=== PATIENT | female | born 1985 | race Caucasian/White ===

== ENCOUNTER 2020-11-07 17:07 | Outpatient (CLI) | payer OTHER | END 2020-11-07 17:08 | disposition home or self-care (01) | LOC: COV 17:07 | PROVIDERS: ATTEND Family Medicine | DX: R05 Cough (principal); R06.02 Shortness of breath; M79.10 Myalgia, unspecified site; R53.83 Other fatigue; R07.0 Pain in throat; R09.81 Nasal congestion; J34.89 Other specified disorders of nose and nasal sinuses; Z20.828 Contact with and (suspected) exposure to other viral communicable diseases ==

== ENCOUNTER 2020-12-08 12:08 | Emergency (ER) | payer OTHER ==
--- NOTE | 2020-12-08 13:12 | ED Physician Documentation ---
History of Present Illness - Stated complaint Stated Complaint: NAUSEA,HEADACHE - Chief complaint Chief Complaint: Abd Pain - History obtained from History obtained from: Patient - Additonal information Additional information: 35-year-old female presents the emergency department for evaluation of nausea vaginal bleeding and lower abdominal pain. She has been attempting to get . LMP 11/14/2020. She began having vaginal spotting 1. The spotting ended yesterday. However she is also been having cramping. She is unsure if the vaginal spotting and bleeding with her menses or if she could be . She has not taken a test. At this time in the emergency department she has no abdominal pain or fevers. She denies any urinary symptoms urgency or frequency. Past medical history includes asthma depression and ADD. 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 Meds albuterol, Adderall 10 mg daily, Lexapro 10 mg daily Review of Systems Constitutional: reports: Reviewed and negative Ears: reports: Reviewed and negative Nose: reports: Reviewed and negative Throat: reports: Reviewed and negative Cardiac: reports: Reviewed and negative Respiratory: reports: Reviewed and negative GI: reports: Abdominal Pain, Nausea, Vomiting : denies: Dysuria, Frequency, Hesitancy Skin: reports: Reviewed and negative Musculoskeletal: reports: Reviewed and negative Neurologic: reports: Reviewed and negative PD PAST MEDICAL HISTORY - Past Medical History Respiratory: Asthma - Present Medications Home Medications: Ambulatory Orders Medication Instructions Recorded Confirmed Meclizine HCl [Antivert] 25 mg PO QID PRN #20 tablet 02/08/16 12/08/20 Albuterol [Proventil Hfa] 1 - 2 puffs PO PRN PRN 12/08/20 12/08/20 Dextroamphetamine/Amphetamine 10 mg PO DAILY 12/08/20 12/08/20 [Adderall 10 mg Tablet] Escitalopram [Lexapro] 10 mg PO DAILY 12/08/20 12/08/20 - Allergies Allergies/Adverse Reactions: Allergies Allergy/AdvReac Type Severity Reaction Status Date / Time acetaminophen [From Vicodin] Allergy Nausea Verified 12/08/20 12:15 hydrocodone bitartrate * Allergy Nausea Verified 12/08/20 12:15 [From Vicodin] - Social History Does the pt smoke?: No Smoking Status: Never smoker Does the pt drink ETOH?: No Does the pt have substance abuse?: No PD ED PE EXPANDED - General General: Alert, No acute distress - Neck Neck: Supple w/out meningeal sx, No tenderness - Abdomen Abdomen: Normal Bowel sounds. No: Tender to palpation - Extremities Extremities: Normal. No: Deformity, Tenderness - Neuro Neuro: Alert and Oriented X 3, CNII-XII intact - GCS Eye Opening: Spontaneous Motor: Obeys Commands Verbal: Oriented Total: 15 Results - Vitals Vitals: Vital Signs - 24 hr 12/08/20 12/08/20 12:15 13:56 Temperature 36.5 C Heart Rate 80 76 Respiratory 16 18 Rate Blood Pressure 101/65 98/62 O2 Saturation 99 99 Oxygen O2 Source Room air - Labs Labs: Laboratory Tests 12/08/20 12/08/20 12/08/20 12:24 12:24 13:22 WBC 8.5 RBC 3.60 L Hgb 12.5 Hct 37.1 MCV 103.1 H MCH 34.7 H MCHC 33.7 RDW 11.2 L Plt Count 216 MPV 9.9 Neut # (Auto) 6.9 H Lymph # (Auto) 1.1 L Boyle # (Auto) 0.4 Eos # (Auto) 0.0 Baso # (Auto) 0.0 Absolute Nucleated RBC 0.00 Nucleated RBC % 0.0 Sodium Potassium Chloride Carbon Dioxide Anion Gap BUN Creatinine Estimated GFR (MDRD) Glucose Calcium Total Bilirubin AST ALT Alkaline Phosphatase Total Protein Albumin Globulin Albumin/Globulin Ratio Lipase HCG, Quant Urine Color YELLOW Urine Clarity CLEAR Urine pH >=9.0 H Ur Specific Makinen 1.015 Urine Protein NEGATIVE Urine Glucose (UA) NEGATIVE Urine Ketones TRACE Urine Occult Blood NEGATIVE Urine Nitrite NEGATIVE Urine Bilirubin NEGATIVE Urine Urobilinogen 0.2 (NORMAL) Ur Leukocyte Esterase NEGATIVE Ur Microscopic Review NOT INDICATED Urine Culture Comments NOT INDICATED Urine HCG, Qual NEGATIVE 12/08/20 12/08/20 13:22 13:22 WBC RBC Hgb Hct MCV MCH MCHC RDW Plt Count MPV Neut # (Auto) Lymph # (Auto) Boyle # (Auto) Eos # (Auto) Baso # (Auto) Absolute Nucleated RBC Nucleated RBC % Sodium 140 Potassium 3.4 L Chloride 98 L Carbon Dioxide 24 Anion Gap 18.0 H BUN 10 Creatinine 0.7 Estimated GFR (MDRD) 96 Glucose 107 H Calcium 9.3 Total Bilirubin 1.4 H AST 18 ALT 17 Alkaline Phosphatase 44 Total Protein 7.1 Albumin 4.2 Globulin 2.9 Albumin/Globulin Ratio 1.4 Lipase 25 HCG, Quant < 0.60 Urine Color Urine Clarity Urine pH Ur Specific Makinen Urine Protein Urine Glucose (UA) Urine Ketones Urine Occult Blood Urine Nitrite Urine Bilirubin Urine Urobilinogen Ur Leukocyte Esterase Ur Microscopic Review Urine Culture Comments Urine HCG, Qual PD MEDICAL DECISION MAKING - ED course Complexity details: reviewed results, re-evaluated patient, considered differential, d/w patient ED course: 35-year-old female was referred to the emergency department for evaluation of vaginal spotting/bleeding that had occurred for 5 days but stopped yesterday. She last had a menstrual cycle 11/14/2020. So the early bleeding concerned her that she may be . Urine hCG and serum hCG are both negative. Here in the emergency department her lab work is otherwise essentially unremarkable and no abdominal pain is elicited. This time she is discharged home with recommendation to monitor her cycles emergent return precautions discussed Departure - Departure Disposition: Home, Self Care Clinical Impression: Irregular menstrual bleeding Condition: Stable Record reviewed to determine appropriate education?: Yes Follow-Up: Susan Taylor MD [Primary Care Provider] - Comments: Angelia you were seen in the emergency department today because you had an early irregular menstrual cycle. Here in the emergency department both your blood hormone level and urine hormone levels show that you are not . It is unclear why you had the early cycle. I recommend that you schedule follow-up with your primary care doctor. If at any point you develop fevers, have suddenly severe lower belly pain, uncontrolled vomiting please return to the ER for a second look
[2020-12-08 13:26] LABS: BILIRUBIN,URINE NEGATIVE (NEGATIVE); GLUCOSE, URINE (UA) NEGATIVE (NEGATIVE); KETONES,URINE (UA) TRACE mg/dL (NEGATIVE); LEUKOCYTE ESTERASE, URINE NEGATIVE (NEGATIVE); NITRITE,URINE NEGATIVE (NEGATIVE); OCCULT BLOOD,URINE NEGATIVE (NEGATIVE); PH,URINE >=9.0 PH (5.0-7.5); PROTEIN,URINE NEGATIVE (NEGATIVE); UROBILINOGEN,URINE 0.2 (NORMAL) E.U./dL (NORMAL)
[2020-12-08 13:30] LABS: CLARITY,URINE CLEAR (CLEAR)
[2020-12-08 13:31] LABS: HCG UR QUAL NEGATIVE
[2020-12-08 13:46] LABS: BASOPHILS % (AUTO) 0.5 %; EOSINOPHILS % (AUTO) 0.2 %; HGB - HEMOGLOBIN 12.5 g/dL (12.0-16.0); LYMPHOCYTES # (AUTO) 1.1 10^3/uL (1.5-3.5); LYMPHOCYTES % (AUTO) 12.7 %; MEAN CORPUSCULAR HEMOGLOBIN 34.7 pg (27.0-31.0); MEAN CORPUSCULAR HGB CONC 33.7 g/dL (32.0-36.0); MEAN CORPUSCULAR VOLUME 103.1 fL (81.0-99.0); MEAN PLATELET VOLUME 9.9 fL (7.9-10.8); MONOCYTES # (AUTO) 0.4 10^3/uL (0.0-1.0); MONOCYTES % (AUTO) 4.7 %; NEUTROPHILS # (AUTO) 6.9 10^3/uL (1.5-6.6); NEUTROPHILS % (AUTO) 81.3 %; PLT - PLATELET COUNT 216 10^3/uL (130-450); RED CELL DISTRIBUTION WIDTH 11.2 % (12.0-15.0); WHITE BLOOD COUNT 8.5 x10^3/uL (4.8-10.8)
[2020-12-08 14:02] LABS: ALBUMIN 4.2 g/dL (3.2-5.5); ALBUMIN/GLOBULIN RATIO 1.4 (1.0-2.2); BILIRUBIN,TOTAL 1.4 mg/dL (0.2-1.0); CALCIUM 9.3 mg/dL (8.5-10.3); CREATININE 0.7 mg/dL (0.4-1.0); TOTAL PROTEIN 7.1 g/dL (6.7-8.2)
[2020-12-08 14:46] VITALS: BP 93/61
== END 2020-12-08 14:46 | disposition home or self-care (01) ==
LOC: ED 12:08
DX: N92.6 Irregular menstruation, unspecified (principal); Z32.02 Encounter for pregnancy test, result negative
CPT/HCPCS: 36415; 80053; 81001; 81003; 81025; 83690; 84702; 85025; 87086; 99282; 99283

== ENCOUNTER 2022-04-19 16:23 | Outpatient (CLI) | payer OTHER ==
[2022-04-19 20:21] LABS: BILIRUBIN,URINE NEGATIVE (NEGATIVE); GLUCOSE, URINE (UA) NEGATIVE (NEGATIVE); KETONES,URINE (UA) TRACE mg/dL (NEGATIVE); LEUKOCYTE ESTERASE, URINE NEGATIVE (NEGATIVE); NITRITE,URINE NEGATIVE (NEGATIVE); OCCULT BLOOD,URINE NEGATIVE (NEGATIVE); PH,URINE 7.5 PH (5.0-7.5); PROTEIN,URINE NEGATIVE (NEGATIVE); UROBILINOGEN,URINE 0.2 (NORMAL) E.U./dL (NORMAL)
[2022-04-19 20:46] LABS: BACTERIA,URINE None Seen /HPF (None Seen); CLARITY,URINE CLEAR (CLEAR); RBC,URINE None Seen /HPF (0-5); SQUAMOUS EPITHELIAL CELL,UR RARE Squamous (<= Few); WBC,URINE 0-3 /HPF (0-5)
[2022-04-21 07:09] LABS: COMPLEMENT C3 107 mg/dL (82-167); COMPLEMENT C4 18 mg/dL (12-38)
[2022-04-21 17:08] LABS: ANTI-DNA (DS) AB QN 1 IU/mL (0-9); CENTROMERE B ANTIBODIES <0.2 AI (0.0-0.9); CHROMATIN ANTIBODIES <0.2 AI (0.0-0.9); JO-1 AB <0.2 AI (0.0-0.9); RIBOSOMAL P ANTIBODIES <0.2 AI (0.0-0.9); RNP ANTIBODIES <0.2 AI (0.0-0.9); SCLERODERMA-70 ANTIBODIES <0.2 AI (0.0-0.9); SJOGREN'S ANTI-SS-A <0.2 AI (0.0-0.9); SJOGREN'S ANTI-SS-B <0.2 AI (0.0-0.9); SMITH ANTIBODIES <0.2 AI (0.0-0.9); SMITH/RNP ANTIBODIES <0.2 AI (0.0-0.9)
== END 2022-04-19 16:24 | disposition home or self-care (01) ==
LOC: LAB.S 16:23
PROVIDERS: ATTEND Physician Assistant
DX: R53.83 Other fatigue (principal); R21 Rash and other nonspecific skin eruption; R59.1 Generalized enlarged lymph nodes; R76.8 Other specified abnormal immunological findings in serum
CPT/HCPCS: 36415; 81001; 85651; 86160; 86225; 86235; 87086

== ENCOUNTER 2022-09-10 12:29 | Outpatient (CLI) | payer OTHER ==
[2022-09-10 12:50] LABS: BASOPHILS % (AUTO) 0.5 %; EOSINOPHILS # (AUTO) 0.1 10^3/uL (0.0-0.7); EOSINOPHILS % (AUTO) 0.7 %; HCT - HEMATOCRIT 36.7 % (37.0-47.0); HGB - HEMOGLOBIN 12.5 g/dL (12.0-16.0); LYMPHOCYTES # (AUTO) 2.3 10^3/uL (1.5-3.5); LYMPHOCYTES % (AUTO) 29.9 %; MEAN CORPUSCULAR HEMOGLOBIN 34.8 pg (27.0-31.0); MEAN CORPUSCULAR HGB CONC 34.1 g/dL (32.0-36.0); MEAN CORPUSCULAR VOLUME 102.2 fL (81.0-99.0); MEAN PLATELET VOLUME 9.2 fL (7.9-10.8); MONOCYTES # (AUTO) 0.6 10^3/uL (0.0-1.0); MONOCYTES % (AUTO) 7.4 %; NEUTROPHILS # (AUTO) 4.7 10^3/uL (1.5-6.6); NEUTROPHILS % (AUTO) 61.2 %; PLT - PLATELET COUNT 259 10^3/uL (130-450); RED BLOOD COUNT 3.59 10^6/uL (4.20-5.40); RED CELL DISTRIBUTION WIDTH 11.1 % (12.0-15.0); WHITE BLOOD COUNT 7.6 x10^3/uL (4.8-10.8)
[2022-09-10 13:08] LABS: BILIRUBIN,URINE NEGATIVE (NEGATIVE); GLUCOSE, URINE (UA) NEGATIVE (NEGATIVE); KETONES,URINE (UA) NEGATIVE (NEGATIVE); LEUKOCYTE ESTERASE, URINE NEGATIVE (NEGATIVE); NITRITE,URINE NEGATIVE (NEGATIVE); OCCULT BLOOD,URINE NEGATIVE (NEGATIVE); PROTEIN,URINE NEGATIVE (NEGATIVE); UROBILINOGEN,URINE 0.2 (NORMAL) E.U./dL (NORMAL)
[2022-09-10 13:10] LABS: CLARITY,URINE CLEAR (CLEAR)
[2022-09-10 13:23] LABS: BACTERIA,URINE Few /HPF (None Seen); RBC,URINE None Seen /HPF (0-5); SQUAMOUS EPITHELIAL CELL,UR FEW Squamous (<= Few); WBC,URINE 0-3 /HPF (0-5)
[2022-09-11 05:10] LABS: HCV AB <0.1 s/co ratio (0.0-0.9); HIV SCREEN 4TH GENERATION Non Reactive (Non Reactive)
[2022-09-11 07:09] LABS: HBsAG SCREEN Negative (Negative)
[2022-09-11 08:09] LABS: RPR Non Reactive (Non Reactive)
[2022-09-11 11:09] LABS: VARICELLA-ZOSTER AB IGG 643 index (Immune >165)
== END 2022-09-10 12:30 | disposition home or self-care (01) ==
LOC: LAB 12:29
PROVIDERS: ATTEND Nurse Practitioner
DX: Z36.89 Encounter for other specified antenatal screening (principal)
CPT/HCPCS: 36415; 81001; 85025; 86592; 86762; 86787; 86803; 86850; 86900; 86901; 87086; 87340; 87389; 87491; 87591; 87661

== ENCOUNTER 2022-09-11 08:00 | Outpatient (CLI) | payer OTHER ==
[2022-09-11 12:23] LABS: BILIRUBIN,URINE NEGATIVE (NEGATIVE); CLARITY,URINE CLEAR (CLEAR); GLUCOSE, URINE (UA) NEGATIVE (NEGATIVE); KETONES,URINE (UA) NEGATIVE (NEGATIVE); LEUKOCYTE ESTERASE, URINE TRACE (NEGATIVE); NITRITE,URINE NEGATIVE (NEGATIVE); OCCULT BLOOD,URINE NEGATIVE (NEGATIVE); PROTEIN,URINE NEGATIVE (NEGATIVE); UROBILINOGEN,URINE 0.2 (NORMAL) E.U./dL (NORMAL)
[2022-09-11 12:56] LABS: BACTERIA,URINE Few /HPF (None Seen); RBC,URINE 0-5 /HPF (0-5); SQUAMOUS EPITHELIAL CELL,UR FEW Squamous (<= Few); WBC,URINE 0-3 /HPF (0-5)
[2022-09-11 20:57] LABS: CHLAMYDIA TRACHOMATIS DNA NEGATIVE (NEGATIVE); NEISSERIA GONORRHOEAE DNA NEGATIVE (NEGATIVE); TRICHOMONAS VAGINALIS DNA NEGATIVE (NEGATIVE)
== END 2022-09-11 23:59 | disposition home or self-care (01) ==
LOC: LAB.WC 08:00
PROVIDERS: ATTEND Nurse Practitioner
DX: Z36.89 Encounter for other specified antenatal screening (principal)
CPT/HCPCS: 81001; 87086; 87491; 87591; 87661

== ENCOUNTER 2022-09-17 18:52 | Outpatient (CLI) | payer OTHER ==
--- NOTE | 2022-09-18 13:54 | Ultrasound Report ---
PROCEDURE: OB First Trimester w/TV INDICATIONS: SUPERVISION OF OUTSIDE/PRIOR DATING DATA: Last menstrual period (LMP): 07/22/2022. LMP-based estimated date of delivery (EDELMIRA): 04/28/2023. First dating scan (date and location): 09/17/2022. Estimated date of delivery (EDELMIRA) from first dating scan: 04/27/2023. The below data below was generated using the ultrasound derived EDELMIRA of 04/27/2023 TECHNIQUE: Real-time scanning was performed of the fetus and maternal pelvic organs, with image documentation. Endovaginal scanning was also performed to better visualize the fetus and maternal ovaries. COMPARISON: None. FINDINGS: Embryo: There is a gestational sac at the uterine fundus measuring 3.7 cm. Within the gestational sa c there is a fetus measuring 1.8 cm in crown-rump length. heart rate is 169 bpm. No significant adnexal or ovarian abnormality. No pathologic free fluid. IMPRESSION: Single living intrauterine gestation with estimated gestational age 8 weeks 2 days. Reviewed by: Shan Angulo MD on 09/18/2022 1:52 PM PDT Approved by: Shan Angulo MD on 09/18/2022 1:52 PM PDT Station ID: [id number]
== END 2022-09-17 18:53 | disposition home or self-care (01) ==
LOC: DI 18:52
PROVIDERS: ATTEND Nurse Practitioner
DX: Z34.91 Encounter for supervision of normal pregnancy, unspecified, first trimester (principal); Z36.89 Encounter for other specified antenatal screening

== ENCOUNTER 2022-11-05 11:14 | Outpatient (CLI) | payer OTHER | END 2022-11-05 11:15 | disposition home or self-care (01) | LOC: LAB 11:14 | PROVIDERS: ATTEND Obstetrics & Gynecology | DX: Z34.90 Encounter for supervision of normal pregnancy, unspecified, unspecified trimester (principal) | CPT/HCPCS: 36415 ==

== ENCOUNTER 2022-12-05 14:13 | Outpatient (CLI) | payer OTHER | END 2022-12-05 14:14 | disposition home or self-care (01) | LOC: LAB.S 14:13 | PROVIDERS: ATTEND Obstetrics & Gynecology | DX: Z34.90 Encounter for supervision of normal pregnancy, unspecified, unspecified trimester (principal) | CPT/HCPCS: 36415; 81511 ==

== ENCOUNTER 2022-12-10 09:01 | Outpatient (CLI) | payer OTHER ==
--- NOTE | 2022-12-10 11:57 | Ultrasound Report ---
PROCEDURE: OB Detailed Eval INDICATIONS: SUPERVISION OF OUTSIDE/PRIOR DATING DATA: Last menstrual period (LMP): 07/22/2022. LMP-based estimated date of delivery (EDELMIRA): 04/28/2023. First dating scan (date and location): 09/17/2022. Estimated date of delivery (EDELMIRA) from first dating scan: 04/27/2023. The below data below was generated using the ultrasound EDELMIRA of 04/27/2023 TECHNIQUE: Real-time scanning was performed of the fetus, with image documentation and biometric measurements. Endovaginal scanning: Not performed COMPARISON: Ultrasound 09/17/2022 FINDINGS: General: A single living intrauterine gestation is present. Presentation: Cephalic Placenta: Placental position is anterior, without previa. Amniotic fluid index: 14 cm, 40th percentile for gestational age. Single deepest vertical fluid pocket is 4.2 cm. heart rate: 140 beats per minute. Maternal cervical canal: 3.9 cm long; normal length is 2.5 cm or more. biometrics: Biparietal diameter: 4.87 cm, 20 weeks 5 days Head circumference: 15.67 cm, 21 weeks 0 days Abdominal circumference: 15.89 cm, 21 weeks 0 days Femur length: 3.4 cm, 20 weeks 5 days Estimated gestational age from initial scan: 20 weeks 1 day Composite gestational age from present scan: 20 weeks 5 days Estimated weight and percentile: 383 g, 84th percentile Measurement variability in biometric dating: +/- 10 days from 12-20 weeks gestation, +/- 2 weeks from 20-30 weeks gestation, +/- 3 weeks at 30 weeks gestation or later. Anatomic survey: Neuro: Ventricles are normal at less than 10 mm. Cisterna magna is normal at 3-11 mm. Cerebellum i s normal in size and morphology. Nuchal skin fold: Normal at less than 6 mm between 14 and 20 weeks gestational age. Face: Nose and lips, facial profile are normal. Spine: No evidence for spina bifida. Heart: 4-chambered heart is present, with normal ventricular outflow tracts. Diaphragm: Diaphragm is intact. Stomach: Left-sided stomach is present. Kidneys: No hydronephrosis. Normal is less than 5 mm in 2nd trimester, less than 7 mm in 3rd trimester. Cord: 3 vessel cord has orthotopic insertion. Bladder: Normal in size. Extremities: All 4 extremities are visualized. IMPRESSION: 1.Single live intrauterine with appropriate interval growth. 2. anatomic survey is within normal limits. 3.Nuchal cord is noted. Reviewed by: Stanley Campos MD on 12/10/2022 11:56 AM PST Approved by: Stanley Campos MD on 12/10/2022 11:56 AM PST Station ID: [id number]
== END 2022-12-10 09:02 | disposition home or self-care (01) ==
LOC: DI 09:01
PROVIDERS: ATTEND Nurse Practitioner
DX: Z34.92 Encounter for supervision of normal pregnancy, unspecified, second trimester (principal); Z3A.20 20 weeks gestation of pregnancy; Z36.89 Encounter for other specified antenatal screening

== ENCOUNTER 2023-02-06 07:56 | Outpatient (CLI) | payer OTHER ==
[2023-02-06 14:24] LABS: HCT - HEMATOCRIT 31.7 % (37.0-47.0); HGB - HEMOGLOBIN 10.2 g/dL (12.0-16.0); MEAN CORPUSCULAR HGB CONC 32.2 g/dL (32.0-36.0); MEAN CORPUSCULAR VOLUME 102.6 fL (81.0-99.0); MEAN PLATELET VOLUME 9.6 fL (7.9-10.8); RED BLOOD COUNT 3.09 10^6/uL (4.20-5.40); RED CELL DISTRIBUTION WIDTH 12.4 % (12.0-15.0); WHITE BLOOD COUNT 8.5 x10^3/uL (4.8-10.8)
== END 2023-02-06 07:57 | disposition home or self-care (01) ==
LOC: LAB.S 07:56
PROVIDERS: ATTEND Obstetrics & Gynecology
DX: Z36.89 Encounter for other specified antenatal screening (principal)
CPT/HCPCS: 36415; 82950; 85027

== ENCOUNTER 2023-02-14 20:57 | Outpatient (CLI) | payer OTHER ==
--- NOTE | 2023-02-15 10:01 | Ultrasound Report ---
PROCEDURE: OB F/U or Repeat INDICATIONS: EXCESSIVE WEIGHT GAIN IN OUTSIDE/PRIOR DATING DATA: Last menstrual period (LMP): 07/22/2022. LMP-based estimated date of delivery (EDELMIRA): 04/28/2023. First dating scan (date and location): 09/27/2022. Estimated date of delivery (EDELMIRA) from first dating scan: 04/27/2023. The below data below was generated using the ultrasound EDELMIRA of 04/27/2023 TECHNIQUE: Real-time scanning was performed of the fetus, with image documentation and biometric measurements. COMPARISON: OB ultrasound 12/10/2022 FINDINGS: General: A single living intrauterine gestation is present. Presentation: Vertex Placenta: Placental position is anterior, without previa. Amniotic fluid index: 18.3 cm, normal for gestational age. Largest pocket 6.1 cm heart rate: 171 beats per minute. Maternal cervical canal: 4.3 cm long; normal length is 2.5 cm or more. No funneling. biometrics: Biparietal diameter: 8 cm, 32 weeks 1 day, 95.9 percentile Head circumference: 30.4 cm, 33 weeks 6 days, 98.7 percentile Abdominal circumference: 29.4 cm, 33 weeks 3 days, 99.5 percentile Femur length: 5.9 cm, 30 weeks 6 days, 99.5 percentile Estimated gestational age from initial scan: 29 weeks 5 days Composite gestational age from present scan: 32 weeks 4 days Estimated weight and percentile: 2009 g, 99.5 percentile (previously 83.9 percentile on ). Measurement variability in biometric dating: +/- 10 days from 12-20 weeks gestation, +/- 2 weeks from 20-30 weeks gestation, +/- 3 weeks at 30 weeks gestation or more. Other: Nuchal cord is again noted. IMPRESSION: 1. [place] living intrauterine at 32 weeks 4 days based on today's ultrasound. Estimated weight 2009 g, 99.5 percentile. Findings most consistent with macrosomia. 2. Normal placenta and amniotic fluid. 3. Nuchal cord is again noted. Reviewed by: Joe Dominguez MD on 02/15/2023 10:00 AM PDT Approved by: Joe Dominguez MD on 02/15/2023 10:00 AM PDT Station ID: [id number]
== END 2023-02-14 20:58 | disposition home or self-care (01) ==
LOC: DI 20:57
PROVIDERS: ATTEND Obstetrics & Gynecology
DX: O26.03 Excessive weight gain in pregnancy, third trimester (principal); Z3A.32 32 weeks gestation of pregnancy

== ENCOUNTER 2023-02-19 08:02 | Outpatient (CLI) | payer OTHER ==
[2023-02-19 08:40] LABS: GTT GLUCOSE,FASTING 102 mg/dL (70-100)
== END 2023-02-19 08:03 | disposition home or self-care (01) ==
LOC: LAB 08:02
PROVIDERS: ATTEND Obstetrics & Gynecology
DX: O99.810 Abnormal glucose complicating pregnancy (principal)
CPT/HCPCS: 36415; 82951; 82952

== ENCOUNTER 2023-04-01 08:57 | Outpatient (CLI) | payer OTHER ==
--- NOTE | 2023-04-01 14:59 | Ultrasound Report ---
PROCEDURE: OB F/U or Repeat INDICATIONS: EXCESSIVE WEIGHT GAIN IN OUTSIDE/PRIOR DATING DATA: Last menstrual period (LMP): 07/22/2022. LMP-based estimated date of delivery (EDELMIRA): 04/20/2023. First dating scan (date and location): 09/17/2022. Estimated date of delivery (EDELMIRA) from first dating scan: 04/27/2023. The below data below was generated using the EDELMIRA of TECHNIQUE: Real-time scanning was performed of the fetus, with image documentation and biometric measurements. COMPARISON: OB ultrasound 02/14/2023 FINDINGS: General: A single living intrauterine gestation is present. Presentation: Vertex Placenta: Placental position is anterior, without previa. Amniotic fluid index: 16.7 cm, within normal limits for gestational age. heart rate: 1:30 beats per minute. Maternal cervical canal: 3.7 cm long; normal length is 2.5 cm or more. biometrics: Biparietal diameter: 9.5 cm 30 weeks 5 days Head circumference: 35.1 cm 40 weeks 6 days Abdominal circumference: 34.6 cm 20 weeks 4 days Femur length: 7.1 cm 36 weeks 1 day Estimated gestational age from initial scan: 36 weeks 2 days Composite gestational age from present scan: 38 weeks 4 days Estimated weight and percentile: 3444 g, 94th percentile Measurement variability in biometric dating: +/- 10 days from 12-20 weeks gestation, +/- 2 weeks from 20-30 weeks gestation, +/- 3 weeks at 30 weeks gestation or more. Other: Nuchal cord remains visible. IMPRESSION: Single live intrauterine with ultrasound gestational age today 30 weeks 4 days. weight is at the 94th percentile. Nuchal cord remains visible. Reviewed by: Saray Rodriguez MD on 04/01/2023 2:58 PM PDT Approved by: Saray Rodriguez MD on 04/01/2023 2:58 PM PDT Station ID: [id number]
== END 2023-04-01 08:58 | disposition home or self-care (01) ==
LOC: DI 08:57
PROVIDERS: ATTEND Obstetrics & Gynecology
DX: O26.02 Excessive weight gain in pregnancy, second trimester (principal); Z3A.38 38 weeks gestation of pregnancy

== ENCOUNTER 2023-04-08 08:00 | Outpatient (CLI) | payer OTHER | END 2023-04-08 23:59 | disposition home or self-care (01) | LOC: LAB 08:00 | PROVIDERS: ATTEND Obstetrics & Gynecology | DX: Z36.85 Encounter for antenatal screening for Streptococcus B (principal) | CPT/HCPCS: 87797 ==

== ENCOUNTER 2023-04-16 08:56 | Inpatient (IN) | payer OTHER ==
[2023-04-16] MEDS ORDERED: fentaNYL 100 MCG/2 ML VIAL IVP PRN (09:48)
[2023-04-16] MEDS ORDERED: TRANEXAMIC ACID IN NACL 1,000 MG/100 ML BAG IV PRN (09:48)
[2023-04-16] MEDS ORDERED: LABETALOL 20 MG/4 ML SYRINGE IVP PRN ×3 (09:48)
[2023-04-16] MEDS ORDERED: miSOPROStoL 200 MCG TABLET PR PRN (09:48)
[2023-04-16] MEDS ORDERED: NIFEdipine 10 MG CAPSULE PO PRN (09:48)
[2023-04-16] MEDS ORDERED: TERBUTALINE 1 MG/ML VIAL SUBQ PRN (09:48)
[2023-04-16] MEDS ORDERED: lidocaine 1% 20 ML MDV ID PRN (09:48)
[2023-04-16] MEDS ORDERED: CARBOPROST TROMETHAMINE 250 MCG/ML AMP IM PRN (09:48)
[2023-04-16] MEDS ORDERED: OXYTOCIN/SODIUM CHLORIDE 500 ML IV PRN (09:48)
[2023-04-16] MEDS ORDERED: OXYTOCIN 10 UNIT/ML VIAL IM PRN (09:48)
[2023-04-16] MEDS ORDERED: SODIUM CHLORIDE FLUSH 0.9% 10 ML SYRINGE IVP PRN (09:48)
[2023-04-16] MEDS ORDERED: METHYLERGONOVINE 0.2 MG/ML VIAL IM PRN (09:48)
[2023-04-16] MEDS ORDERED: hydrALAZINE INJ 20 MG/ML VIAL IVP PRN ×2 (09:48)
[2023-04-16] MEDS ORDERED: miSOPROStoL 200 MCG TABLET BC PRN (09:48)
[2023-04-16 09:51] LABS: RUPTURE OF MEMBRANES PLUS POSITIVE (NEGATIVE)
--- NOTE | 2023-04-16 10:12 | HISTORY & PHYSICAL EXAMINATION ---
Admit History - Smoking Status: Never smoker - Mother's Labs Mother's Blood Type: positive: O Mother's RH: positive: Positive GBS: positive: Group B Step Negative Rubella Status: positive: Immune - Other Maternal History Other Maternal History: HPI: Patient is a 37-year-old G1, P0 at 38 weeks 2 days gestation presenting for leaking fluid. She initially thought she was leaking urine, but this continued. She thinks it started around 0700 this morning. She has good movement. No CORDOVA/BV or RUQP. No vaginal bleeding. Denies nausea and vomiting. Denies urinary urgency or dysuria. All other symptoms reviewed and were negative except per HPI. Course LMP: 07/22/2022 EDELMIRA by LMP: 04/28/2023 09/17/2022@ 8+2 weeks c/w dates Final EDELMIRA 04/28/2023 Problems: Hx of LEEP (2011) ADHD: Stopped adderal in . Currently doing well on Lexapro Asthma: Well-controlled with ciclesonide. Rare albuterol use, usually with seasonal weather change. No history of hospitalizations. Excessive weight gain in : EFW ordered. 02/14/23 EFW 2009 g, 99.5 percentile. Nuchal cord again seen. EFW pending 04/01/2023 04/01/23: 3444g 94th%ile, nuchal cord still presents A2 GDM: 2 units Lantus in the evening. Better control so far. Pre- weight: 155 BMI: 25.15 O+ Rubella: immune RPR: negative VZV: immune Genetic testing: [id number]- Negative/ XY, AFP Negative FAS: WNL EFW 84th%ile, placenta anterior, 3VC, ADELE WNL (40%)- nuchal Glucola: Ordered 01/28/23 1HR 183 3HR 102 161, 107, 104 Influenza:09/10/2022 TDAP: 01/28/2023 GBS: Negative HSV: Denies self and partner Breast Pump Rx:01/28/23 MOD: Anticipate , Plan for 39-week induction. pp contraception: Condoms. pap: 2019 Normal. Declines GCCT: Negative 09/11/22 PMH ADHD OCD PSH LEEP: 2011 Facial cyst removal: 2018 OB History G1, P0 SH Denies tobacco, alcohol, drugs Family History Paternal grandmother: Cancer Maternal grandmother father colon cancer Maternal grandmother: Diabetes Aunt: Lupus Allergies No known drug allergies Medications Insulin: Lantus 4 units at night vitamins Lexapro 10 mg Albuterol: As needed Ciclesonide: Daily Physical exam: General: Alert, oriented, no acute distress Head: Normal cephalic atraumatic Eyes: PERRLA, extraocular motions intact. Respiratory: Normal rate of respiration. No accessory muscle use, normal respiratory effort. Cardiovascular: Regular rate and rhythm Abdomen: Gravid, nontender, nondistended Extremities: Normal range of motion Neuro: Oriented x3. Normal movements Psych: Appropriate mood and affect. Normal judgment and insight SVE: FHT: 140 bpm baseline , Moderate variability, accelerations present, no decelerations. Reactive NST [place]: Irregular Plan 37-year-old G1, P0 at 38 weeks 2 days gestation presenting with prelabor rupture of membranes 1. Prelabor rupture of membranes -Admit to L&D, admit labs, epidural at patient's request -Plan for 1 dose of misoprostol 25 mcg buccal -We will start oxytocin after this dose. 2. 38 weeks gestation 3. A2 gestational diabetes -Every 4 hour glucose checks, increased to every 2 in active labor. -Subcutaneous insulin if necessary 4. Elderly primigravida 5. Moderate, persistent asthma -No recent exacerbations. Managed well with ciclesonide and as needed albuterol, although infrequent. 6. Suspected LGA: Last ultrasound on 04/01/2023 showed fetus at 3444 g. Meds/Allgy - Home Medications Home Medications: Ambulatory Orders Medication Instructions Recorded Confirmed Meclizine HCl [Antivert] 25 mg PO QID PRN #20 tablet 02/08/16 12/08/20 Albuterol [Proventil Hfa] 1 - 2 puffs PO PRN PRN 12/08/20 12/08/20 Dextroamphetamine/Amphetamine 10 mg PO DAILY 12/08/20 12/08/20 [Adderall 10 mg Tablet] Escitalopram [Lexapro] 10 mg PO DAILY 12/08/20 12/08/20 - Allergies Allergies/Adverse Reactions: Allergies Allergy/AdvReac Type Severity Reaction Status Date / Time acetaminophen [From Vicodin] Allergy Nausea Verified 12/08/20 12:15 hydrocodone bitartrate * Allergy Nausea Verified 12/08/20 12:15 [From Vicodin] Physical - Abdominal Exam Vital Signs: Temp Pulse Resp BP Pulse Ox O2 Flow Rate 98.1 F 104 H 16 119/71 04/16/23 09:09 04/16/23 09:09 04/16/23 09:09 04/16/23 09:09 Plan for Labor - Plan For Labor I expect patient to be DC'd or transferred within 96 hours.: Yes
--- OUTSIDE RECORDS SUMMARY | 2023-04-16 10:16 | EXTERNAL MEDICAL SUMMARY RPT | Continuity of Care Document ---
Author Name Unknown Address [address] [place] [address] Phone Organization [facility] Address [address] [place] [address] Phone Care Team Providers Care Apprentice Carpenter Name Role Phone Unavailable Unavailable Unavailable Rudy Guzmán, Wood Unavailable Unavailable Cayabceasar Do, Suzie Unavailable Unavailable Hernando Renae Pa-C Unavailable Unavailable Khurram Siebel Crm Developer, Jesi Unavailable Unavailable Yessy, Provider Unavailable Unavailable Khurram Siebel Crm Developer, Jesi Unavailable Unavailable Khurram Siebel Crm Developer, Jesi Unavailable Unavailable Khurram Siebel Crm Developer, Jesi Unavailable Unavailable Noa Méndez Analyst, Jessie Unavail able Unavailable Medications date description facility 2023-04-08 00:00 insulin glargine All 2023-04-08 00:00 insulin glargine All 2023-04-08 00:00 insulin glargine All 2023-04-08 00:00 pen needle, diabetic All 2023-04-08 00:00 pen needle, diabetic All 2023-04-08 00:00 pen needle, diabetic All 2023-02-19 00:00 blood-glucose meter All 2023-02-19 00:00 blood-glucose meter All 2023-02-19 00:00 blood-glucose meter All 2023-02-19 00:00 blood-glucose meter All 2023-02-19 00:00 blood-glucose meter All 2023-01-28 00:00 ciclesonide All 2023-01-29 00:00 ciclesonide All 2023-02-06 00:00 ciclesonide All 2023-02-07 00:00 ciclesonide All 2023-02-18 00:00 ciclesonide All 2023-02-18 00:00 ciclesonide All 2023-02-19 00:00 ciclesonide All 2023-02-19 00:00 ciclesonide All 2023-02-20 00:00 ciclesonide All 2023-02-25 00:00 ciclesonide All 2023-03-17 00:00 ciclesonide All 2023-03-24 00:00 ciclesonide All 2023-03-28 00:00 ciclesonide All 2023-04-10 00:00 ciclesonide All 2023-04-14 00:00 ciclesonide All 2023-04-15 00:00 ciclesonide All 2023-02-20 00:00 blood sugar diagnostic All 2023-03-11 00:00 blood sugar diagnostic All 2023-03-11 00:00 blood sugar diagnostic All 2023-03-11 00:00 blood sugar diagnostic All 2023-03-11 00:00 blood sugar diagnostic All 2023-04-08 00:00 insulin glargine All 2023-04-08 00:00 insulin glargine All 2023-04-08 00:00 insulin glargine All 2023-02-19 00:00 blood sugar diagnostic All 2023-02-19 00:00 blood sugar diagnostic All 2023-02-19 00:00 blood sugar diagnostic All 2023-02-19 00:00 blood sugar diagnostic All 2023-02-19 00:00 blood sugar diagnostic All 2023-02-19 00:00 blood-glucose meter All 2023-02-19 00:00 blood-glucose meter All 2023-02-19 00:00 blood-glucose meter All 2023-02-19 00:00 blood-glucose meter All 2023-02-19 00:00 blood-glucose meter All 2023-04-08 00:00 pen needle, diabetic All 2023-04-08 00:00 pen needle, diabetic All 2023-04-08 00:00 pen needle, diabetic All 2023-02-19 00:00 blood sugar diagnostic All 2023-02-19 00:00 blood sugar diagnostic All 2023-02-19 00:00 blood sugar diagnostic All 2023-02-19 00:00 blood sugar diagnostic All 2023-02-19 00:00 blood sugar diagnostic All 2023-04-08 00:00 insulin glargine All 2023-04-08 00:00 insulin glargine All 2023-04-08 00:00 insulin glargine All 2023-03-11 00:00 metformin All 2023-03-11 00:00 metformin All 2023-03-11 00:00 metformin All 2023-03-11 00:00 metformin All 2023-03-11 00:00 metformin All 2023-03-11 00:00 metformin All 2023-03-11 00:00 metformin All 2023-03-11 00:00 metformin All 2023-01-28 00:00 ciclesonide All 2023-01-29 00:00 ciclesonide All 2023-02-06 00:00 ciclesonide All 2023-02-07 00:00 ciclesonide All 2023-02-18 00:00 ciclesonide All 2023-02-18 00:00 ciclesonide All 2023-02-19 00:00 ciclesonide All 2023-02-19 00:00 ciclesonide All 2023-02-20 00:00 ciclesonide All 2023-02-25 00:00 ciclesonide All 2023-03-17 00:00 ciclesonide All 2023-03-24 00:00 ciclesonide All 2023-03-28 00:00 ciclesonide All 2023-04-10 00:00 ciclesonide All 2023-04-14 00:00 ciclesonide All 2023-04-15 00:00 ciclesonide All 2023-02-20 00:00 blood sugar diagnostic All 2023-03-11 00:00 blood sugar diagnostic All 2023-03-11 00:00 blood sugar diagnostic All 2023-03-11 00:00 blood sugar diagnostic All 2023-03-11 00:00 blood sugar diagnostic All 2023-03-11 00:00 metformin All 2023-03-11 00:00 metformin All 2023-03-11 00:00 metformin All 2023-03-11 00:00 metformin All 2023-01-28 00:00 ciclesonide All 2023-01-29 00:00 ciclesonide All 2023-02-06 00:00 ciclesonide All 2023-02-07 00:00 ciclesonide All 2023-02-18 00:00 ciclesonide All 2023-02-18 00:00 ciclesonide All 2023-02-19 00:00 ciclesonide All 2023-02-19 00:00 ciclesonide All 2023-02-20 00:00 ciclesonide All 2023-02-25 00:00 ciclesonide All 2023-03-17 00:00 ciclesonide All 2023-03-24 00:00 ciclesonide All 2023-03-28 00:00 ciclesonide All 2023-04-10 00:00 ciclesonide All 2023-04-14 00:00 ciclesonide All 2023-04-15 00:00 ciclesonide All 2023-02-19 00:00 lancets All 2023-02-19 00:00 lancets All 2023-02-19 00:00 lancets All 2023-02-19 00:00 lancets All 2023-02-19 00:00 lancets All 2023-01-28 00:00 ciclesonide All 2023-01-29 00:00 ciclesonide All 2023-02-06 00:00 ciclesonide All 2023-02-07 00:00 ciclesonide All 2023-02-18 00:00 ciclesonide All 2023-02-18 00:00 ciclesonide All 2023-02-19 00:00 ciclesonide All 2023-02-19 00:00 ciclesonide All 2023-02-20 00:00 ciclesonide All 2023-02-25 00:00 ciclesonide All 2023-03-17 00:00 ciclesonide All 2023-03-24 00:00 ciclesonide All 2023-03-28 00:00 ciclesonide All 2023-04-10 00:00 ciclesonide All 2023-04-14 00:00 ciclesonide All 2023-04-15 00:00 ciclesonide All 2023-04-08 00:00 insulin glargine All 2023-04-08 00:00 insulin glargine All 2023-04-08 00:00 insulin glargine All 2023-03-11 00:00 metformin All 2023-03-11 00:00 metformin All 2023-03-11 00:00 metformin All 2023-03-11 00:00 metformin All 2023-02-19 00:00 blood sugar diagnostic All 2023-02-19 00:00 blood sugar diagnostic All 2023-02-19 00:00 blood sugar diagnostic All 2023-02-19 00:00 blood sugar diagnostic All 2023-02-19 00:00 blood sugar diagnostic All 2023-02-20 00:00 blood sugar diagnostic All 2023-03-11 00:00 blood sugar diagnostic All 2023-03-11 00:00 blood sugar diagnostic All 2023-03-11 00:00 blood sugar diagnostic All 2023-03-11 00:00 blood sugar diagnostic All 2023-04-08 00:00 pen needle, diabetic All 2023-04-08 00:00 pen needle, diabetic All 2023-04-08 00:00 pen needle, diabetic All 2023-02-19 00:00 blood-glucose meter All 2023-02-19 00:00 blood-glucose meter All 2023-02-19 00:00 blood-glucose meter All 2023-02-19 00:00 blood-glucose meter All 2023-02-19 00:00 blood-glucose meter All 2023-02-19 00:00 lancets All 2023-02-19 00:00 lancets All 2023-02-19 00:00 lancets All 2023-02-19 00:00 lancets All 2023-02-19 00:00 lancets All 2023-02-19 00:00 lancets All 2023-02-19 00:00 lancets All 2023-02-19 00:00 lancets All 2023-02-19 00:00 lancets All 2023-02-19 00:00 lancets All Problems date description facility 2023-01-28 00:00 Excessive weight gain during pr egnancy All 2023-01-28 00:00 Excessive weight gain during pr egnancy All 2023-01-28 00:00 Excessive weight gain during pr egnancy All 2023-01-28 00:00 Excessive weight gain during pr egnancy All 2023-01-28 00:00 Excessive weight gain during pr egnancy All 2023-01-28 00:00 Excessive weight gain during pr egnancy All 2023-01-28 00:00 Excessive weight gain during pr egnancy All 2023-01-28 00:00 Excessive weight gain during pr egnancy All 2023-01-28 00:00 Excessive weight gain during pr egnancy All 2023-01-28 00:00 Edema or excessive w eight gain in , without mention of hypertension, antepartum condition or complication All 2023-01-28 00:00 Edema or excessive w eight gain in , without mention of hypertension, antepartum condition or complication All 2023-01-28 00:00 Edema or excessive w eight gain in , without mention of hypertension, antepartum condition or complication All 2023-01-28 00:00 Edema or excessive w eight gain in , without mention of hypertension, antepartum condition or complication All 2023-01-28 00:00 Edema or excessive w eight gain in , without mention of hypertension, antepartum condition or complication All 2023-01-28 00:00 Edema or excessive w eight gain in , without mention of hypertension, antepartum condition or complication All 2023-01-28 00:00 Edema or excessive w eight gain in , without mention of hypertension, antepartum condition or complication All 2023-01-28 00:00 Edema or excessive w eight gain in , without mention of hypertension, antepartum condition or complication All 2023-01-28 00:00 Edema or excessive w eight gain in , without mention of hypertension, antepartum condition or complication All 2023-01-28 00:00 Excessive weight gain in pregna ncy, second trimester All 2023-01-28 00:00 Excessive weight gain in pregna ncy, second trimester All 2023-01-28 00:00 Excessive weight gain in pregna ncy, second trimester All 2023-01-28 00:00 Excessive weight gain in pregna ncy, second trimester All 2023-01-28 00:00 Excessive weight gain in pregna ncy, second trimester All 2023-01-28 00:00 Excessive weight gain in pregna ncy, second trimester All 2023-01-28 00:00 Excessive weight gain in pregna ncy, second trimester All 2023-01-28 00:00 Excessive weight gain in pregna ncy, second trimester All 2023-01-28 00:00 Excessive weight gain in pregna ncy, second trimester All 2023-02-06 00:00 Abnormal glucose nolvia erance test during - baby not yet delivered All 2023-02-06 00:00 Abnormal glucose nolvia erance test during - baby not yet delivered All 2023-02-06 00:[address] during - baby not yet delivered outside reference range All 2023-02-06 00:[address] during - baby not yet delivered outside reference range All 2023-02-06 00:[address] during - baby not yet delivered outside reference range All 2023-02-06 00:[address] during - baby not yet delivered outside reference range All 2023-02-06 00:[address] during - baby not yet delivered outside reference range All 2023-02-06 00:[address] during - baby not yet delivered outside reference range All 2023-02-06 00:[address] during - baby not yet delivered outside reference range All 2023-02-06 00:00 Abnormal glucose nolvia erance complicating , childbirth, or the puerperium, antepartum condition or complication All 2023-02-06 00:00 Abnormal glucose nolvia erance complicating , childbirth, or the puerperium, antepartum condition or complication All 2023-02-06 00:00 Abnormal glucose nolvia erance complicating , childbirth, or the puerperium, antepartum condition or complication All 2023-02-06 00:00 Abnormal glucose nolvia erance complicating , childbirth, or the puerperium, antepartum condition or complication All 2023-02-06 00:00 Abnormal glucose nolvia erance complicating , childbirth, or the puerperium, antepartum condition or complication All 2023-02-06 00:00 Abnormal glucose nolvia erance complicating , childbirth, or the puerperium, antepartum condition or complication All 2023-02-06 00:00 Abnormal glucose nolvia erance complicating , childbirth, or the puerperium, antepartum condition or complication All 2023-02-06 00:00 Abnormal glucose nolvia erance complicating , childbirth, or the puerperium, antepartum condition or complication All 2023-02-06 00:00 Abnormal glucose complicating p regnancy All 2023-02-06 00:00 Abnormal glucose complicating p regnancy All 2023-02-06 00:00 Abnormal glucose complicating p regnancy All 2023-02-06 00:00 Abnormal glucose complicating p regnancy All 2023-02-06 00:00 Abnormal glucose complicating p regnancy All 2023-02-06 00:00 Abnormal glucose complicating p regnancy All 2023-02-06 00:00 Abnormal glucose complicating p regnancy All 2023-02-06 00:00 Abnormal glucose complicating p regnancy All 2023-02-19 00:00 Excessive growth affectin g management of mother All 2023-02-19 00:00 Excessive growth affectin g management of mother All 2023-02-19 00:00 Excessive growth affectin g management of mother All 2023-02-19 00:00 Excessive growth affectin g management of mother All 2023-02-19 00:00 Excessive growth affectin g management of mother All 2023-02-19 00:00 Excessive grow th affecting management of mother, antepartum condition or complication All 2023-02-19 00:00 Excessive grow th affecting management of mother, antepartum condition or complication All 2023-02-19 00:00 Excessive grow th affecting management of mother, antepartum condition or complication All 2023-02-19 00:00 Excessive grow th affecting management of mother, antepartum condition or complication All 2023-02-19 00:00 Excessive grow th affecting management of mother, antepartum condition or complication All 2023-02-19 00:00 Maternal care for ex cessive growth, third trimester, not applicable or unspecified All 2023-02-19 00:00 Maternal care for ex cessive growth, third trimester, not applicable or unspecified All 2023-02-19 00:00 Maternal care for ex cessive growth, third trimester, not applicable or unspecified All 2023-02-19 00:00 Maternal care for ex cessive growth, third trimester, not applicable or unspecified All 2023-02-19 00:00 Maternal care for ex cessive growth, third trimester, not applicable or unspecified All 2023-03-25 00:00 Excessive weight gain during pr egnancy All 2023-03-25 00:00 Excessive weight gain during pr egnancy All 2023-03-25 00:00 Excessive weight gain during pr egnancy All 2023-03-25 00:00 Excessive weight gain during pr egnancy All 2023-03-25 00:00 Gestation period, 37 weeks All 2023-03-25 00:00 Gestation period, 37 weeks All 2023-03-25 00:00 Edema or excessive w eight gain in , without mention of hypertension, antepartum condition or complication All 2023-03-25 00:00 Edema or excessive w eight gain in , without mention of hypertension, antepartum condition or complication All 2023-03-25 00:00 Edema or excessive w eight gain in , without mention of hypertension, antepartum condition or complication All 2023-03-25 00:00 Edema or excessive w eight gain in , without mention of hypertension, antepartum condition or complication All 2023-03-25 00:00 Gestation period, 35 weeks All 2023-03-25 00:00 Gestation period, 35 weeks All 2023-03-25 00:00 Gestation period, 35 weeks All 2023-03-25 00:00 Gestation period, 35 weeks All 2023-03-25 00:00 Excessive weight gain in pregna ncy, third trimester All 2023-03-25 00:00 Excessive weight gain in pregna ncy, third trimester All 2023-03-25 00:00 Excessive weight gain in pregna ncy, third trimester All 2023-03-25 00:00 Excessive weight gain in pregna ncy, third trimester All 2023-03-25 00:00 Encounter for unspecified anten atal screening of mother All 2023-03-25 00:00 Encounter for unspecified anten atal screening of mother All 2023-03-25 00:00 Encounter for unspecified anten atal screening of mother All 2023-03-25 00:00 Encounter for unspecified anten atal screening of mother All 2023-03-25 00:00 35 weeks gestation of All 2023-03-25 00:00 35 weeks gestation of All 2023-03-25 00:00 35 weeks gestation of All 2023-03-25 00:00 35 weeks gestation of All 2023-03-25 00:00 37 weeks gestation of All 2023-03-25 00:00 37 weeks gestation of All 2023-04-08 00:00 screening All 2023-04-08 00:00 screening All 2023-04-08 00:00 Gestational diabetes mellitus c lass A2 All 2023-04-08 00:00 Gestational diabetes mellitus c lass A2 All 2023-04-08 00:00 High risk All 2023-04-08 00:00 High risk All 2023-04-08 00:00 Abnormal glucose nolvia erance complicating , childbirth, or the puerperium, unspecified as to episode of care or not applicable All 2023-04-08 00:00 Abnormal glucose nolvia erance complicating , childbirth, or the puerperium, unspecified as to episode of care or not applicable All 2023-04-08 00:00 Supervision of high risk , unspecified, third trimester All 2023-04-08 00:00 Supervision of high risk , unspecified, third trimester All 2023-04-08 00:00 Gestational diabetes mellitus in , insulin controlled All 2023-04-08 00:00 Gestational diabetes mellitus in , insulin controlled All 2023-04-08 00:00 Supervision of unspecified high -risk All 2023-04-08 00:00 Supervision of unspecified high -risk All 2023-04-08 00:00 Encounter for antena mariia screening for Streptococcus B of mother All 2023-04-08 00:00 Encounter for antena mariia screening for Streptococcus B of mother All 2023-04-08 00:00 Encounter for screeni ng for Streptococcus B All 2023-04-08 00:00 Encounter for screeni ng for Streptococcus B All Procedures date description facility 2023-01-28 00:00 US OB FOLLOW-UP All 2023-01-28 00:00 US OB FOLLOW-UP All 2023-01-28 00:00 US OB FOLLOW-UP All 2023-01-28 00:00 US OB FOLLOW-UP All 2023-01-28 00:00 US OB FOLLOW-UP All 2023-01-28 00:00 US OB FOLLOW-UP All 2023-01-28 00:00 US OB FOLLOW-UP All 2023-02-25 00:00 US OB FOLLOW-UP All 2023-02-25 00:00 US OB FOLLOW-UP All 2023-02-25 00:00 US OB FOLLOW-UP All 2023-01-28 00:00 1HR GTT All 2023-01-28 00:00 1HR GTT All 2023-01-28 00:00 1HR GTT All 2023-01-28 00:00 1HR GTT All 2023-01-28 00:00 1HR GTT All 2023-01-28 00:00 1HR GTT All 2023-01-28 00:00 1HR GTT All 2023-02-06 00:00 3HR GTT All 2023-02-06 00:00 3HR GTT All 2023-02-06 00:00 3HR GTT All 2023-01-28 00:00 CBC w/o DIFF All 2023-01-28 00:00 CBC w/o DIFF All 2023-01-28 00:00 CBC w/o DIFF All 2023-01-28 00:00 CBC w/o DIFF All 2023-01-28 00:00 CBC w/o DIFF All 2023-01-28 00:00 CBC w/o DIFF All 2023-01-28 00:00 CBC w/o DIFF All 2023-04-08 00:00 GBSPCR All 2023-04-08 00:00 GBSPCR All 2023-04-08 00:00 GBSPCR All 2023-01-28 00:00 First Ix admin via I D IM or jet injects with counseling by physician for adult All 2023-01-28 00:00 First Ix admin via I D IM or jet injects with counseling by physician for adult All 2023-01-28 00:00 First Ix admin via I D IM or jet injects with counseling by physician for adult All 2023-01-28 00:00 First Ix admin via I D IM or jet injects with counseling by physician for adult All 2023-01-28 00:00 First Ix admin via I D IM or jet injects with counseling by physician for adult All 2023-01-28 00:00 First Ix admin via I D IM or jet injects with counseling by physician for adult All 2023-01-28 00:00 First Ix admin via I D IM or jet injects with counseling by physician for adult All 2023-01-28 00:00 First Ix admin via I D IM or jet injects with counseling by physician for adult All 2023-01-28 00:00 First Ix admin via I D IM or jet injects with counseling by physician for adult All 2023-01-28 00:00 Boostrix Intramuscular Suspensi on 5-2.5-18.5 All 2023-01-28 00:00 Boostrix Intramuscular Suspensi on 5-2.5-18.5 All 2023-01-28 00:00 Boostrix Intramuscular Suspensi on 5-2.5-18.5 All 2023-01-28 00:00 Boostrix Intramuscular Suspensi on 5-2.5-18.5 All 2023-01-28 00:00 Boostrix Intramuscular Suspensi on 5-2.5-18.5 All 2023-01-28 00:00 Boostrix Intramuscular Suspensi on 5-2.5-18.5 All 2023-01-28 00:00 Boostrix Intramuscular Suspensi on 5-2.5-18.5 All 2023-01-28 00:00 Boostrix Intramuscular Suspensi on 5-2.5-18.5 All 2023-01-28 00:00 Boostrix Intramuscular Suspensi on 5-2.5-18.5 All Results/Labs test date author facility value unit interpretation Result panel 1 (unknown) (no date) (unknown) All (no value) (units unknown) (unknown) Result panel 2 (unknown) (no date) (unknown) All (no value) (units unknown) (unknown) Result panel 3 (unknown) (no date) (unknown) All (no value) (units unknown) (unknown) Result panel 4 (unknown) (no date) (unknown) All (no value) (units unknown) (unknown) Result panel 5 (unknown) (no date) (unknown) All (no value) (units unknown) (unknown) Result panel 6 (unknown) (no date) (unknown) All (no value) (units unknown) (unknown) Result panel 7 (unknown) (no date) (unknown) All (no value) (units unknown) (unknown) Result panel 8 (unknown) (no date) (unknown) All (no value) (units unknown) (unknown) Result panel 9 (unknown) (no date) (unknown) All (no value) (units unknown) (unknown) Result panel 10 (unknown) (no date) (unknown) All (no value) (units unknown) (unknown) Result panel 11 (unknown) (no date) (unknown) All (no value) (units unknown) (unknown) Result panel 12 (unknown) (no date) (unknown) All (no value) (units unknown) (unknown) Result panel 13 (unknown) (no date) (unknown) All (no value) (units unknown) (unknown) Result panel 14 (unknown) (no date) (unknown) All (no value) (units unknown) (unknown) Result panel 15 (unknown) (no date) (unknown) All (no value) (units unknown) (unknown) Result panel 16 (unknown) (no date) (unknown) All (no value) (units unknown) (unknown) Result panel 17 (unknown) (no date) (unknown) All (no value) (units unknown) (unknown) Result panel 18 (unknown) (no date) (unknown) All (no value) (units unknown) (unknown) Result panel 19 (unknown) (no date) (unknown) All (no value) (units unknown) (unknown) Result panel 20 (unknown) (no date) (unknown) All (no value) (units unknown) (unknown) Result panel 21 (unknown) (no date) (unknown) All (no value) (units unknown) (unknown) Result panel 22 (unknown) (no date) (unknown) All (no value) (units unknown) (unknown) Result panel 23 (unknown) (no date) (unknown) All (no value) (units unknown) (unknown) Result panel 24 (unknown) (no date) (unknown) All (no value) (units unknown) (unknown) Result panel 25 (unknown) (no date) (unknown) All (no value) (units unknown) (unknown) Result panel 26 (unknown) (no date) (unknown) All (no value) (units unknown) (unknown) Result panel 27 (unknown) (no date) (unknown) All (no value) (units unknown) (unknown) Result panel 28 (unknown) (no date) (unknown) All (no value) (units unknown) (unknown) Result panel 29 (unknown) (no date) (unknown) All (no value) (units unknown) (unknown) Result panel 30 (unknown) (no date) (unknown) All (no value) (units unknown) (unknown) Result panel 31 (unknown) (no date) (unknown) All (no value) (units unknown) (unknown) Result panel 32 (unknown) (no date) (unknown) All (no value) (units unknown) (unknown) Result panel 33 (unknown) (no date) (unknown) All (no value) (units unknown) (unknown) Result panel 34 (unknown) (no date) (unknown) All (no value) (units unknown) (unknown) Result panel 35 (unknown) (no date) (unknown) All (no value) (units unknown) (unknown) Result panel 36 (unknown) (no date) (unknown) All (no value) (units unknown) (unknown) Result panel 37 (unknown) (no date) (unknown) All (no value) (units unknown) (unknown) Result panel 38 (unknown) (no date) (unknown) All (no value) (units unknown) (unknown) Result panel 39 (unknown) (no date) (unknown) All (no value) (units unknown) (unknown) Result panel 40 (unknown) (no date) (unknown) All (no value) (units unknown) (unknown) Result panel 41 (unknown) (no date) (unknown) All (no value) (units unknown) (unknown) Result panel 42 (unknown) (no date) (unknown) All (no value) (units unknown) (unknown) Result panel 43 (unknown) (no date) (unknown) All (no value) (units unknown) (unknown) Result panel 44 (unknown) (no date) (unknown) All (no value) (units unknown) (unknown) Result panel 45 (unknown) (no date) (unknown) All (no value) (units unknown) (unknown) Result panel 46 (unknown) (no date) (unknown) All (no value) (units unknown) (unknown) Result panel 47 (unknown) (no date) (unknown) All (no value) (units unknown) (unknown) Result panel 48 (unknown) (no date) (unknown) All (no value) (units unknown) (unknown) Result panel 49 (unknown) (no date) (unknown) All (no value) (units unknown) (unknown) Result panel 50 (unknown) (no date) (unknown) All (no value) (units unknown) (unknown) Result panel 51 (unknown) (no date) (unknown) All (no value) (units unknown) (unknown) Result panel 52 (unknown) (no date) (unknown) All (no value) (units unknown) (unknown) Result panel 53 (unknown) (no date) (unknown) All (no value) (units unknown) (unknown) Result panel 54 (unknown) (no date) (unknown) All (no value) (units unknown) (unknown) Result panel 55 (unknown) (no date) (unknown) All (no value) (units unknown) (unknown) Result panel 56 (unknown) (no date) (unknown) All (no value) (units unknown) (unknown) Result panel 57 (unknown) (no date) (unknown) All (no value) (units unknown) (unknown) Result panel 58 (unknown) (no date) (unknown) All (no value) (units unknown) (unknown) Result panel 59 (unknown) (no date) (unknown) All (no value) (units unknown) (unknown) Result panel 60 (unknown) (no date) (unknown) All (no value) (units unknown) (unknown) Result panel 61 (unknown) (no date) (unknown) All (no value) (units unknown) (unknown) Result panel 62 (unknown) (no date) (unknown) All (no value) (units unknown) (unknown) Result panel 63 (unknown) (no date) (unknown) All (no value) (units unknown) (unknown) Result panel 64 (unknown) (no date) (unknown) All (no value) (units unknown) (unknown) Result panel 65 (unknown) (no date) (unknown) All (no value) (units unknown) (unknown) Result panel 66 (unknown) (no date) (unknown) All (no value) (units unknown) (unknown) Result panel 67 (unknown) (no date) (unknown) All (no value) (units unknown) (unknown) Result panel 68 (unknown) (no date) (unknown) All (no value) (units unknown) (unknown) Result panel 69 (unknown) (no date) (unknown) All (no value) (units unknown) (unknown) Result panel 70 (unknown) (no date) (unknown) All (no value) (units unknown) (unknown) Result panel 71 (unknown) (no date) (unknown) All (no value) (units unknown) (unknown) Result panel 72 (unknown) (no date) (unknown) All (no value) (units unknown) (unknown) Result panel 73 (unknown) (no date) (unknown) All (no value) (units unknown) (unknown) Result panel 74 (unknown) (no date) (unknown) All (no value) (units unknown) (unknown) Result panel 75 (unknown) (no date) (unknown) All (no value) (units unknown) (unknown) Result panel 76 (unknown) (no date) (unknown) All (no value) (units unknown) (unknown) Result panel 77 (unknown) (no date) (unknown) All (no value) (units unknown) (unknown) Result panel 78 (unknown) (no date) (unknown) All (no value) (units unknown) (unknown) Result panel 79 (unknown) (no date) (unknown) All (no value) (units unknown) (unknown) Result panel 80 (unknown) (no date) (unknown) All (no value) (units unknown) (unknown) Result panel 81 (unknown) (no date) (unknown) All (no value) (units unknown) (unknown) Result panel 82 (unknown) (no date) (unknown) All (no value) (units unknown) (unknown) Result panel 83 (unknown) (no date) (unknown) All (no value) (units unknown) (unknown) Result panel 84 (unknown) (no date) (unknown) All (no value) (units unknown) (unknown) Result panel 85 (unknown) (no date) (unknown) All (no value) (units unknown) (unknown) Result panel 86 (unknown) (no date) (unknown) All (no value) (units unknown) (unknown) Result panel 87 (unknown) (no date) (unknown) All (no value) (units unknown) (unknown) Result panel 88 (unknown) (no date) (unknown) All (no value) (units unknown) (unknown) Result panel 89 (unknown) (no date) (unknown) All (no value) (units unknown) (unknown) Result panel 90 (unknown) (no date) (unknown) All (no value) (units unknown) (unknown) Result panel 91 (unknown) (no date) (unknown) All (no value) (units unknown) (unknown) Result panel 92 (unknown) (no date) (unknown) All (no value) (units unknown) (unknown) Result panel 93 (unknown) (no date) (unknown) All (no value) (units unknown) (unknown) Result panel 94 (unknown) (no date) (unknown) All (no value) (units unknown) (unknown) Result panel 95 (unknown) (no date) (unknown) All (no value) (units unknown) (unknown) Result panel 96 (unknown) (no date) (unknown) All (no value) (units unknown) (unknown) Result panel 97 (unknown) (no date) (unknown) All (no value) (units unknown) (unknown) Result panel 98 (unknown) (no date) (unknown) All (no value) (units unknown) (unknown) Result panel 99 (unknown) (no date) (unknown) All (no value) (units unknown) (unknown) Result panel 100 (unknown) (no date) (unknown) All (no value) (units unknown) (unknown) Result panel 101 (unknown) (no date) (unknown) All (no value) (units unknown) (unknown) Result panel 102 (unknown) (no date) (unknown) All (no value) (units unknown) (unknown) Result panel 103 (unknown) (no date) (unknown) All (no value) (units unknown) (unknown) Result panel 104 (unknown) (no date) (unknown) All (no value) (units unknown) (unknown) Result panel 105 (unknown) (no date) (unknown) All (no value) (units unknown) (unknown) Result panel 106 (unknown) (no date) (unknown) All (no value) (units unknown) (unknown) Result panel 107 (unknown) (no date) (unknown) All (no value) (units unknown) (unknown) Result panel 108 (unknown) (no date) (unknown) All (no value) (units unknown) (unknown) Result panel 109 (unknown) (no date) (unknown) All (no value) (units unknown) (unknown) Result panel 110 (unknown) (no date) (unknown) All (no value) (units unknown) (unknown) Result panel 111 (unknown) (no date) (unknown) All (no value) (units unknown) (unknown) Result panel 112 (unknown) (no date) (unknown) All (no value) (units unknown) (unknown) Result panel 113 (unknown) (no date) (unknown) All (no value) (units unknown) (unknown) Result panel 114 (unknown) (no date) (unknown) All (no value) (units unknown) (unknown) Result panel 115 (unknown) (no date) (unknown) All (no value) (units unknown) (unknown) Result panel 116 (unknown) (no date) (unknown) All (no value) (units unknown) (unknown) Result panel 117 (unknown) (no date) (unknown) All (no value) (units unknown) (unknown) Result panel 118 (unknown) (no date) (unknown) All (no value) (units unknown) (unknown) Result panel 119 (unknown) (no date) (unknown) All (no value) (units unknown) (unknown) Result panel 120 (unknown) (no date) (unknown) All (no value) (units unknown) (unknown) Result panel 121 (unknown) (no date) (unknown) All (no value) (units unknown) (unknown) Result panel 122 (unknown) (no date) (unknown) All (no value) (units unknown) (unknown) Result panel 123 (unknown) (no date) (unknown) All (no value) (units unknown) (unknown) Result panel 124 (unknown) (no date) (unknown) All (no value) (units unknown) (unknown) Result panel 125 (unknown) (no date) (unknown) All (no value) (units unknown) (unknown) Result panel 126 (unknown) (no date) (unknown) All (no value) (units unknown) (unknown) Result panel 127 (unknown) (no date) (unknown) All (no value) (units unknown) (unknown) Result panel 128 (unknown) (no date) (unknown) All (no value) (units unknown) (unknown) Result panel 129 (unknown) (no date) (unknown) All (no value) (units unknown) (unknown) Result panel 130 (unknown) (no date) (unknown) All (no value) (units unknown) (unknown) Result panel 131 (unknown) (no date) (unknown) All (no value) (units unknown) (unknown) Result panel 132 (unknown) (no date) (unknown) All (no value) (units unknown) (unknown) Result panel 133 (unknown) (no date) (unknown) All (no value) (units unknown) (unknown) Result panel 134 (unknown) (no date) (unknown) All (no value) (units unknown) (unknown) Result panel 135 (unknown) (no date) (unknown) All (no value) (units unknown) (unknown) Result panel 136 (unknown) (no date) (unknown) All (no value) (units unknown) (unknown) Result panel 137 (unknown) (no date) (unknown) All (no value) (units unknown) (unknown) Result panel 138 (unknown) (no date) (unknown) All (no value) (units unknown) (unknown) Result panel 139 (unknown) (no date) (unknown) All (no value) (units unknown) (unknown) Result panel 140 (unknown) (no date) (unknown) All (no value) (units unknown) (unknown) Result panel 141 (unknown) (no date) (unknown) All (no value) (units unknown) (unknown) Result panel 142 (unknown) (no date) (unknown) All (no value) (units unknown) (unknown) Result panel 143 (unknown) (no date) (unknown) All (no value) (units unknown) (unknown) Result panel 144 (unknown) (no date) (unknown) All (no value) (units unknown) (unknown) Result panel 145 (unknown) (no date) (unknown) All (no value) (units unknown) (unknown) Result panel 146 (unknown) (no date) (unknown) All (no value) (units unknown) (unknown) Result panel 147 (unknown) (no date) (unknown) All (no value) (units unknown) (unknown) Result panel 148 (unknown) (no date) (unknown) All (no value) (units unknown) (unknown) Result panel 149 (unknown) (no date) (unknown) All (no value) (units unknown) (unknown) Result panel 150 (unknown) (no date) (unknown) All (no value) (units unknown) (unknown) Result panel 151 (unknown) (no date) (unknown) All (no value) (units unknown) (unknown) Result panel 152 (unknown) (no date) (unknown) All (no value) (units unknown) (unknown) Result panel 153 (unknown) (no date) (unknown) All (no value) (units unknown) (unknown) Result panel 154 (unknown) (no date) (unknown) All (no value) (units unknown) (unknown) Result panel 155 (unknown) (no date) (unknown) All (no value) (units unknown) (unknown) Result panel 156 (unknown) (no date) (unknown) All (no value) (units unknown) (unknown) Result panel 157 (unknown) (no date) (unknown) All (no value) (units unknown) (unknown) Result panel 158 (unknown) (no date) (unknown) All (no value) (units unknown) (unknown) Result panel 159 (unknown) (no date) (unknown) All (no value) (units unknown) (unknown) Result panel 160 (unknown) (no date) (unknown) All (no value) (units unknown) (unknown) Result panel 161 (unknown) (no date) (unknown) All (no value) (units unknown) (unknown) Result panel 162 (unknown) (no date) (unknown) All (no value) (units unknown) (unknown) Result panel 163 (unknown) (no date) (unknown) All (no value) (units unknown) (unknown) Result panel 164 (unknown) (no date) (unknown) All (no value) (units unknown) (unknown) Result panel 165 (unknown) (no date) (unknown) All (no value) (units unknown) (unknown) Result panel 166 (unknown) (no date) (unknown) All (no value) (units unknown) (unknown) Result panel 167 (unknown) (no date) (unknown) All (no value) (units unknown) (unknown) Result panel 168 (unknown) (no date) (unknown) All (no value) (units unknown) (unknown) Result panel 169 (unknown) (no date) (unknown) All (no value) (units unknown) (unknown) Result panel 170 (unknown) (no date) (unknown) All (no value) (units unknown) (unknown) Result panel 171 (unknown) (no date) (unknown) All (no value) (units unknown) (unknown) Result panel 172 (unknown) (no date) (unknown) All (no value) (units unknown) (unknown) Result panel 173 (unknown) (no date) (unknown) All (no value) (units unknown) (unknown) Result panel 174 (unknown) (no date) (unknown) All (no value) (units unknown) (unknown) Result panel 175 (unknown) (no date) (unknown) All (no value) (units unknown) (unknown) Result panel 176 (unknown) (no date) (unknown) All (no value) (units unknown) (unknown) Social History date description facility 2023-03-18 00:00 Never smoker All 2023-03-18 00:00 Never smoker All 2023-03-18 00:00 Never smoker All 2023-03-18 00:00 Never smoker All Vital Signs date measurement value units 2023-01-28 00:00 BMI 29.39 kg/m2 2023-01-28 00:00 BP_diastolic 80 mmHg 2023-01-28 00:00 BP_systolic 128 mmHg 2023-01-28 00:00 temperature_metric 37.28 C 2023-01-28 00:00 temperature_standard 99.1 F 2023-01-28 00:00 weight_metric 84.82 kg 2023-01-28 00:00 weight_standard 187 lb 2023-02-25 00:00 BMI 31.31 kg/m2 2023-02-25 00:00 BP_diastolic 70 mmHg 2023-02-25 00:00 BP_systolic 110 mmHg 2023-02-25 00:00 height_metric 170.18 cm 2023-02-25 00:00 height_standard 67 in 2023-02-25 00:00 temperature_metric 36.5 C 2023-02-25 00:00 temperature_standard 97.7 F 2023-02-25 00:00 weight_metric 90.36 kg 2023-02-25 00:00 weight_standard 199.2 lb 2023-03-11 00:00 BMI 30.93 kg/m2 2023-03-11 00:00 BP_diastolic 60 mmHg 2023-03-11 00:00 BP_systolic 110 mmHg 2023-03-11 00:00 height_metric 170.18 cm 2023-03-11 00:00 height_standard 67 in 2023-03-11 00:00 temperature_metric 36.72 C 2023-03-11 00:00 temperature_standard 98.1 F 2023-03-11 00:00 weight_metric 89.27 kg 2023-03-11 00:00 weight_standard 196.8 lb 2023-03-18 00:00 BMI 31.15 kg/m2 2023-03-18 00:00 BP_diastolic 64 mmHg 2023-03-18 00:00 BP_systolic 124 mmHg 2023-03-18 00:00 height_metric 170.18 cm 2023-03-18 00:00 height_standard 67 in 2023-03-18 00:00 temperature_metric 36.72 C 2023-03-18 00:00 temperature_standard 98.1 F 2023-03-18 00:00 weight_metric 89.9 kg 2023-03-18 00:00 weight_standard 198.2 lb 2023-03-25 00:00 BMI 31.12 kg/m2 2023-03-25 00:00 BP_diastolic 64 mmHg 2023-03-25 00:00 BP_systolic 114 mmHg 2023-03-25 00:00 height_metric 170.18 cm 2023-03-25 00:00 height_standard 67 in 2023-03-25 00:00 temperature_metric 36.28 C 2023-03-25 00:00 temperature_standard 97.3 F 2023-03-25 00:00 weight_metric 89.81 kg 2023-03-25 00:00 weight_standard 198 lb 2023-04-08 00:00 BMI 31.75 kg/m2 2023-04-08 00:00 BP_diastolic 78 mmHg 2023-04-08 00:00 BP_systolic 128 mmHg 2023-04-08 00:00 height_metric 170.18 cm 2023-04-08 00:00 height_standard 67 in 2023-04-08 00:00 temperature_metric 36.22 C 2023-04-08 00:00 temperature_standard 97.2 F 2023-04-08 00:00 weight_metric 91.63 kg 2023-04-08 00:00 weight_standard 202 lb 2023-04-15 00:00 BMI 31.63 kg/m2 2023-04-15 00:00 BP_diastolic 70 mmHg 2023-04-15 00:00 BP_systolic 120 mmHg 2023-04-15 00:00 height_metric 170.18 cm 2023-04-15 00:00 height_standard 67 in 2023-04-15 00:00 weight_metric 91.26 kg 2023-04-15 00:00 weight_standard 201.2 lb
[2023-04-16] MEDS: miSOPROStoL 100 MCG TABLET BC SCH (11:09)
[2023-04-16 11:22] LABS: BASOPHILS # (AUTO) 0.1 10^3/uL (0.0-0.1); BASOPHILS % (AUTO) 0.6 %; EOSINOPHILS # (AUTO) 0.2 10^3/uL (0.0-0.7); LYMPHOCYTES # (AUTO) 1.8 10^3/uL (1.5-3.5); LYMPHOCYTES % (AUTO) 18.1 %; MEAN CORPUSCULAR HEMOGLOBIN 32.3 pg (27.0-31.0); MEAN CORPUSCULAR HGB CONC 32.4 g/dL (32.0-36.0); MEAN CORPUSCULAR VOLUME 99.7 fL (81.0-99.0); MEAN PLATELET VOLUME 10.5 fL (7.9-10.8); MONOCYTES # (AUTO) 0.8 10^3/uL (0.0-1.0); MONOCYTES % (AUTO) 7.9 %; NEUTROPHILS % (AUTO) 70.4 %; PLT - PLATELET COUNT 223 10^3/uL (130-450); RED BLOOD COUNT 3.71 10^6/uL (4.20-5.40); RED CELL DISTRIBUTION WIDTH 14.2 % (12.0-15.0)
[2023-04-16] MEDS: LACTATED RINGERS 1,000 ML IV SCH ×2 (15:40→23:39)
[2023-04-16] MEDS: OXYTOCIN/SODIUM CHLORIDE 500 ML IV SCH (15:43)
[2023-04-16] MEDS ORDERED: OXYTOCIN/SODIUM CHLORIDE 500 ML IV SCH (16:00)
--- NOTE | 2023-04-16 16:15 | PROVIDER PROGRESS NOTE ---
Labor Progress Note - Uterine Monitoring Uterine Monitoring Mode: positive: External toco Contraction Frequency (min/apart): Irregular Contraction Intensity: positive: Mild Uterine Resting Tone: positive: Soft - Monitoring Monitor Mode: positive: External ultrasound Heart Rate Baseline: 140 Heart Rate Variability: positive: Moderate (6-25 bmp) Accelerations: positive: Present, 15x15 Decelerations: positive: None - Labor Progress Note Labor Progress Note/Additional Text: Did start oxytocin for management of prelabor rupture of membranes. Received 1 dose of misoprostol as she was unfavorable. Plan to check cervix when cont ractions are regular. Will increase by 2 units per 30 minutes until regular contractions.
[2023-04-16 17:38] LABS: ALBUMIN 2.7 g/dL (3.2-5.5); ALBUMIN/GLOBULIN RATIO 0.8 (1.0-2.2); BILIRUBIN,TOTAL 0.9 mg/dL (0.2-1.0); CALCIUM 9.2 mg/dL (8.5-10.3); CREATININE 0.5 mg/dL (0.4-1.0); TOTAL PROTEIN 6.3 g/dL (6.7-8.2)
--- NOTE | 2023-04-16 19:14 | PROVIDER PROGRESS NOTE ---
Labor Progress Note - Uterine Monitoring Uterine Monitoring Mode: positive: External toco Contraction Frequency (min/apart): 3 to 6 Contraction Intensity: positive: Moderate - Monitoring Monitor Mode: positive: External ultrasound Heart Rate Baseline: 145 Heart Rate Variability: positive: Moderate (6-25 bmp) Accelerations: positive: Present, 15x15 Decelerations: positive: None Strip Review: positive: Category I - Vaginal Exam Dilation (in cm): 2 Effacement (%): 50 Station: -3 - Labor Progress Note Labor Progress Note/Additional Text: Patient comfortable, feeling contractions more strongly, although intermittently. We will continue to increase oxytocin till regular pattern. Minimal change after 1 dose of misoprostol and starting oxytocin. Continue expectant management at this time. Epidural at patient's request.
[2023-04-16] MEDS ORDERED: INSULIN REGULAR HUMAN 300 UNIT/3 ML VIAL SUBQ ONE (22:43)
[2023-04-16] MEDS ORDERED: DEXTROSE 40% GEL 37.5 GM TUBE PO ONE ×2 (22:53)
[2023-04-16] MEDS ORDERED: INSULIN GLARGINE-YFGN 300 UNIT/3 ML PEN SUBQ ONE (23:19)
[2023-04-16] MEDS: INSULIN GLARGINE-YFGN 300 UNIT/3 ML PEN SUBQ SCH (23:25)
--- NOTE | 2023-04-17 07:14 | PROVIDER PROGRESS NOTE ---
Labor Progress Note - Uterine Monitoring Uterine Monitoring Mode: positive: External toco Contraction Frequency (min/apart): 2-3 Contraction Intensity: positive: Moderate to strong Uterine Resting Tone: positive: Soft - Monitoring Monitor Mode: positive: External ultrasound Heart Rate Baseline: 135 Heart Rate Variability: positive: Moderate (6-25 bmp) Accelerations: positive: Present, 15x15 Decelerations: positive: None Strip Review: positive: Category I - Vaginal Exam Dilation (in cm): 3.5 Effacement (%): 90 Station: -2 - Labor Progress Note Labor Progress Note/Additional Text: Patient alexis well and continuing to leak. Painful contractions but tolerating well. Now 24-hours, prolonged ruptured. No fever, chills, abdominal pain. Discharge clear. Continue expectant management.
[2023-04-17] MEDS: LACTATED RINGERS 1,000 ML IV SCH ×3 (07:42→22:17)
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
--- NOTE | 2023-04-17 18:32 | PROVIDER PROGRESS NOTE ---
Labor Progress Note - Uterine Monitoring Uterine Monitoring Mode: positive: IUPC Contraction Frequency (min/apart): 3 Contraction Intensity: positive: Moderate to strong Uterine Resting Tone: positive: Soft - Monitoring Monitor Mode: positive: External ultrasound Heart Rate Baseline: 135 Heart Rate Variability: positive: Moderate (6-25 bmp) Accelerations: positive: Present, 15x15 Decelerations: positive: Early Strip Review: positive: Category I - Vaginal Exam Dilation (in cm): 4 Effacement (%): 50 Station: -2 - Labor Progress Note Labor Progress Note/Additional Text: Contractions hovering around adequate now, and finally starting to make cervical change. Current exam significantly changed from prior. We will continue augmentation at this time. Patient remains afebrile and heart tracing remains category 1. Prolonged use of oxytocin, increased risk of hemorrhage. Will have medications at bedside.
[2023-04-17] MEDS ORDERED: CALCIUM CARBONATE CHEW 500 MG TABLET PO ONE (21:11)
--- NOTE | 2023-04-17 22:38 | PROVIDER PROGRESS NOTE ---
Labor Progress Note - Uterine Monitoring Uterine Monitoring Mode: positive: IUPC Contraction Frequency (min/apart): 2-3 Contraction Intensity: positive: Strong - Monitoring Monitor Mode: positive: External ultrasound Heart Rate Baseline: 140 Heart Rate Variability: positive: Moderate (6-25 bmp) Accelerations: positive: Present, 15x15 Decelerations: positive: None Strip Review: positive: Category I - Vaginal Exam Dilation (in cm): 4 Effacement (%): 50 Station: -2 Cervical Position: Midposition - Labor Progress Note Labor Progress Note/Additional Text: Minimal change since last exam. Patient not ready for section, and given her status, this is not unreasonable. At term, expectant management of P ROM can be done for 12-24 hours, however, we initiated induction early, and this is not an uncommon timeframe. Now 36 hours ruptured, but no fever, chills, maternal or tachycardia. Fetus has been category 1 throughout. Will stop oxytocin for 30 minutes then restart at 14 mu/min. Patient requesting epidural. Discussed that after this wash-out period and increase in oxytocin, will likely proceed with section if not having significant change. Hard to get adequa
[2023-04-17 23:04] LABS: CALCIUM 8.6 mg/dL (8.5-10.3); CREATININE 0.5 mg/dL (0.4-1.0); POTASSIUM 3.8 mmol/L (3.5-5.0)
[2023-04-17] MEDS ORDERED: ROPIVACAINE 0.2% 200 MG/100 ML BAG EP ONE (23:20)
[2023-04-18] MEDS: OXYTOCIN/SODIUM CHLORIDE 500 ML IV SCH
[2023-04-18] MEDS ORDERED: ROPIVACAINE 0.2% 200 MG/100 ML BAG EP PRN (00:04)
[2023-04-18] MEDS ORDERED: METOCLOPRAMIDE 10 MG/2 ML VIAL IVP PRN (00:04)
[2023-04-18] MEDS ORDERED: NALBUPHINE 10 MG/ML AMP IVP PRN (00:04)
[2023-04-18] MEDS ORDERED: NALOXONE 0.4 MG/ML VIAL IVP PRN (00:04)
[2023-04-18] MEDS ORDERED: diphenhydrAMINE INJ 50 MG/ML VIAL IVP PRN (00:04)
--- NOTE | 2023-04-18 00:04 | ANESTHESIA ---
Pre-Anesthesia VS, & Labs - Diagnosis active labor - Procedure labor epidural Vital Signs: Temp Pulse Resp BP Pulse Ox O2 Flow Rate 36.7 C 104 H 16 119/71 04/16/23 10:00 04/16/23 09:09 04/16/23 09:09 04/16/23 09:09 Height: 5 ft 8 in Weight (kg): 91.172 kg Body Mass Index: 30.5 BMI Classification: Obese - NPO Other - Is Patient ?: Yes - Lab Results Current Lab Results: Laboratory Tests 04/17/23 22:50: Sodium 135, Potassium 3.8, Chloride 104, Carbon Dioxide 20 L, Anion Gap 11.0, BUN 5 L, Creatinine 0.5, Estimated GFR (MDRD) 140, Glucose 103 H , Calcium 8.6 04/17/23 20:28: POC Whole Bld Glucose 117 H 04/17/23 18:13: POC Whole Bld Glucose 94 04/17/23 14:38: POC Whole Bld Glucose 80 04/17/23 11:01: POC Whole Bld Glucose 117 H 04/17/23 05:26: POC Whole Bld Glucose 105 H 04/17/23 01:28: POC Whole Bld Glucose 98 04/16/23 22:15: POC Whole Bld Glucose 144 H 04/16/23 19:10: POC Whole Bld Glucose 118 H 04/16/23 15:48: POC Whole Bld Glucose 147 H 04/16/23 12:30: Sodium 137, Potassium 4.0, Chloride 105, Carbon Dioxide 22, Anion Gap 10.0, BUN 7, Creatinine 0.5, Estimated GFR (MDRD) 140, Glucose 89, Calcium 9.2, Total Bilirubin 0.9, AST 20, ALT 20, Alkaline Phosphatase 136 H, Total Protein 6.3 L, Albumin 2.7 L, Globulin 3.6, Albumin/Globulin Ratio 0.8 L 04/16/23 10:47: POC Whole Bld Glucose 89 04/16/23 10:45: WBC 10.0, RBC 3.71 L, Hgb 12.0, Hct 37.0, MCV 99.7 H, MCH 32.3 H , MCHC 32.4, RDW 14.2, Plt Count 223, MPV 10.5, Neut # (Auto) 7.0 H, Lymph # (Auto) 1.8, [place] # (Auto) 0.8, Eos # (Auto) 0.2, Baso # (Auto) 0.1, Absolute Nucleated RBC 0.00, Nucleated RBC % 0.0 04/16/23 10:45: Blood Type O POSITIVE, Antibody Screen NEGATIVE Fish Bones: 04/16/23 10:45 04/17/23 22:50 Home Medications and Allergies Active Medications Fentanyl (Fentanyl 100 Mcg/2 Ml Vial) 50 mcg IVP Q1H PRN PRN Reason: Severe Pain (score 7-10) Hydralazine HCl (Hydralazine Inj 20 Mg/Ml Vial) 5 - 10 mg IVP Q20M PRN; Protocol PRN Reason: SBP> or= 160 OR DBP> or= 110 Hydralazine HCl (Hydralazine Inj 20 Mg/Ml Vial) 10 mg IVP .ONCE PRN; Protocol PRN Reason: SBP> or= 160 OR DBP> or= 110 Oxytocin/Sodium Chloride (Pitocin/Sodium Chloride) 500 mls @ 999 mls/hr IV PRN PRN; Protocol PRN Reason: POST- HEMORR PREVENTION Tranexamic Acid (Tranexamic 1,000 Mg/100ml-Nacl) 1,000 mg in 100 mls @ 600 mls/hr IV Q30M PRN PRN Reason: EBL >1200mL and within 3hr Lactated Ringer's (Lr) 1,000 mls @ 125 mls/hr IV .Q8H [facility] Last Admin: 04/17/23 22:17 Dose: 125 mls/hr Oxytocin/Sodium Chloride (Pitocin/Sodium Chloride) 500 mls @ 1 mls/hr IV TITR CELESTINE; Protocol Last Titration: 04/17/23 22:23 Dose: Infused Insulin Glargine-yfgn (Insulin Glargine-Yfgn 300 Unit/3 Ml Pen) 2 unit SUBQ QPM CELESTINE Last Admin: 04/16/23 23:25 Dose: 2 unit Labetalol HCl (Labetalol 20 Mg/4 Ml Syringe) 20 - 80 mg IVP Q10M PRN; Protocol PRN Reason: SBP> or= 160 OR DBP> or= 110 Labetalol HCl (Labetalol 20 Mg/4 Ml Syringe) 20 mg IVP .ONCE PRN; Protocol PRN Reason: SBP> or= 160 OR DBP> or= 110 Labetalol HCl (Labetalol 20 Mg/4 Ml Syringe) 20 - 40 mg IVP Q10M PRN; Protocol PRN Reason: SBP> or= 160 OR DBP> or= 110 Lidocaine HCl (Lidocaine 1% 20 Ml Mdv) 20 ml ID .ONCE PRN PRN Reason: PERINEAL REPAIR Stop: 04/19/23 09:48 Methylergonovine Maleate (Methylergonovine 0.2 Mg/Ml Vial) 0.2 mg IM .ONCE PRN PRN Reason: Hemorrhage Misoprostol (Misoprostol 200 Mcg Tablet) 600 mcg BC .ONCE PRN PRN Reason: Hemorrhage Misoprostol (Misoprostol 200 Mcg Tablet) 800 mcg [place] .ONCE PRN PRN Reason: Hemorrhage Misoprostol (Misoprostol 100 Mcg Tablet) 25 mcg BC Q4H [facility]STINE Last Admin: 04/16/23 11:09 Dose: 25 mcg Nifedipine (Nifedipine 10 Mg Capsule) 10 - 20 mg PO Q20M PRN; Protocol PRN Reason: SBP> or= 160 OR DBP> or= 110 Oxytocin (Oxytocin 10 Unit/Ml Vial) 10 unit IM .ONCE PRN PRN Reason: Step One if no IV access. Sodium Chloride (Sodium Chloride Flush 0.9% 10 Ml Syringe) 10 ml IVP PRN PRN PRN Reason: NEEDED PER PROVIDER ORDERS Sodium Chloride (Sodium Chloride Flush 0.9% 10 Ml Syringe) 10 ml IVP Q8H CELESTINE Terbutaline Sulfate (Terbutaline 1 Mg/Ml Vial) 0.25 mg SUBQ .ONCE PRN PRN Reason: Tachystole Albuterol [Proventil Hfa] 1 - 2 puffs PO PRN PRN 12/08/20 Dextroamphetamine/Amphetamine [Adderall 10 mg Tablet] 10 mg PO DAILY 12/08/20 Escitalopram [Lexapro] 10 mg PO DAILY 12/08/20 Allergies/Adverse Reactions: Allergies Allergy/AdvReac Type Severity Reaction Status Date / Time acetaminophen [From Vicodin] Allergy Nausea Verified 12/08/20 12:15 hydrocodone bitartrate * Allergy Nausea Verified 12/08/20 12:15 [From Vicodin] Anes History & Medical History - Anesthetic History Anesthesia Complications: reports: No previous complications Family history of Anesthesia Complications: Denies Family history of Malignant Hyperthermia: Denies - Medical History Cardiovascular: reports: None Pulmonary: reports: Asthma Endocrine/Autoimmune: reports: Other (gestational DM) Smoking Status: Never smoker Exam General: Alert, Oriented x3, Cooperative Dental: WNL Mouth Openin Fingerbreadth Neck Mobility: Normal Mallampati classification: II Thyromental Distance: 4-6 cm Respiratory: Lungs clear Cardiovascular: Regular rate Plan Anesthesia Type: Epidural Consent for Procedure(s) Verified and Reviewed: Yes Code Status: Attempt Resuscitation ASA classification: 2-Mild systemic disease Is this case an emergency?: No
[2023-04-18] MEDS: INSULIN GLARGINE-YFGN 300 UNIT/3 ML PEN SUBQ SCH (00:10)
[2023-04-18] MEDS: ONDANSETRON 4 MG/2 ML VIAL IVP PRN ×3 (00:56→12:47)
[2023-04-18] MEDS: ePHEDrine 50 MG/ML VIAL IVP PRN ×2 (05:25→05:35)
[2023-04-18] MEDS ORDERED: ceFAZolin 2 GM in SODIUM CHLORIDE 0.9% MINIBAG 100 ML IV ONE (05:39)
[2023-04-18] MEDS ORDERED: AZITHROMYCIN INJ 500 MG in SODIUM CHLORIDE 0.9% 250 ML IV SCH (05:39)
--- NOTE | 2023-04-18 05:39 | PROVIDER PROGRESS NOTE ---
Labor Progress Note - Uterine Monitoring Uterine Monitoring Mode: positive: IUPC Contraction Frequency (min/apart): 3-4 Contraction Intensity: positive: Moderate Uterine Resting Tone: positive: Soft - Monitoring Monitor Mode: positive: External ultrasound Heart Rate Variability: positive: Moderate (6-25 bmp) Accelerations: positive: Present, 15x15 Decelerations: positive: None Strip Review: positive: Category I - Vaginal Exam Dilation (in cm): 4 Effacement (%): 50 Station: -2 Cervical Position: Midposition - Labor Progress Note Labor Progress Note/Additional Text: I was called by bedside nurse to come evaluate patient. Nurse was worried about sinusoidal pattern intermittently with an episode during a contraction of suspected pattern followed by another episode similar with a contraction approximately 10 minutes later. While I am unsure of the exact timeframe, heart tracing throughout has has been category 1, and continues to have good variability and accelerations. Patient subsequently had a period of hypotension and tachycardia. Blood pressure with a waylon of 69/40 when reclined for SVE. Fluid bolus started. Patient was given ephedrine. Pulse from 100s to 120s. Pulse now persistently in the 120s. No fever. section was recommended. Risks, benefits and alternatives were discussed including but not limited to infection, bleeding that may require blood products or hysterectomy for life saving measures, injury to surrounding organs including but not limited to bowel, bladder, ureters, tubes and ovaries and/or the baby. Should injury occur it could require longer/additional surgery to repair. The patient stated understanding and desired to proceed. All questions were answered posed by patient. Patient agrees to proceed with primary low-transverse section.
[2023-04-18] MEDS ORDERED: METHYLERGONOVINE 0.2 MG/ML VIAL ONE (06:10)
[2023-04-18] MEDS ORDERED: ONDANSETRON 4 MG/2 ML VIAL ONE (06:58)
[2023-04-18] MEDS ORDERED: KETOROLAC 30 MG/ML VIAL ONE (06:58)
--- NOTE | 2023-04-18 07:13 | OPERATIVE REPORT ---
Operative Report - General Admit Date: 04/16/23 Procedure Date: 04/18/23 Planned Procedure: Primary low-transverse section Pre-Op Diagnosis: Failure to dilate Procedure Performed: Primary low-transverse section Post Op Diagnosis: Status post primary low-transverse section - Procedure Note Primary Surgeon: Wood Grant MD Secondary Surgeon: ASHLY Ramirez Anesthesia Provider: Zari Montesinos CRNA Anesthesia Technique: Epidural Pathology: None IV Fluids (mL): 2,000 Estimated Blood Loss (mL): 1,400 Urine Output (mL): 900 Complications: hemorrhage - Other Other Information/Narrative: Preoperative diagnoses: 38 weeks gestation Prelabor rupture of membranes Prolonged rupture of membranes Failure to dilate Postoperative diagnoses Same Status post primary low-transverse section Delivery of live sotelo Patient was admitted for prelabor rupture of membranes and received dose of misoprostol then started on oxytocin. She had a slow induction but made a gradual change intermittently. She remained afebrile and without tachyca rdia, and fetus remained category 1 throughout, so we continued induction for nearly 48 hours. At the end of this time period, she did have unexplained hypotension and mild maternal tachycardia, but remained afebrile. She was checked and remained 4 cm so section was called for failure to dilate. section was recommended. Risks, benefits and alternatives were discussed including but not limited to infection, bleeding that may require blood products or hysterectomy for life saving measures, injury to surrounding organs including but not limited to bowel, bladder, ureters, tubes and ovaries and/or the baby. Should injury occur it could require longer/additional surgery to repair. The patient stated understanding and desired to proceed. All questions were answered posed by patient. Prior to being taken to the OR, 2 grams of cefazolin IV and 500 mg of azithromycin were administered. The patient was taken to the operating room where regional anesthesia was found to be adequate. She was then prepared and draped in the usual sterile fashion in the dorsal supine position with a leftward tilt displacing the uterus. Lee was draining to gravity. SCDs were on bilateral lower extremities. A pfannenstiel skin incision was then made with the scalpel and carried through to the underlying layer of fascia. The fascia was incised in the midline and the incision extended laterally with the Rutledge scissors. The superior aspect of the facial incision was then grasped with the Castillo clamps, elevated and the underlying rectus muscles dissected off sharply. Attention was then turned to the inferior aspect of this incision which in a similar fashion was grasped, elevated with the Castillo clamps and the rectus muscle dissected off sharply. The rectus muscles were in the midline. The peritoneum identified, grasped with the pick-ups and entered sharply with the Metzenbaum scissors. The peritoneal incision was then extended superiorly and inferiorly with good visua lization of the bladder. The bladder blade was inserted. The vesicouterine peritoneum was identified, grasped with the pick-ups, and entered sharply with Metzenbaum scissors. This incision was then extended laterally and the bladder flap created digitally. The bladder blade was reinserted. The lower uterine segment was identified and incised in a transverse fashion with the scalpel. The uterine incision was then extended bluntly laterally. Membranes were previously ruptured and had minimal fluid. The bladder blade was removed. The fetus was in a cephalic presentation. The infants head delivered atraumatically. The anterior shoulders were delivered followed by the posterior shoulders then the remainder of the body. The infants mouth and nose were bulb suctioned. The umbilical cord was clamped times two and cut. The infant was handed to the pediatric team. The placenta was removed with gentle traction. Oxytocin were added to IVF and allowed to run freely. The uterus was exteriorized and cleared of all clots and debris. The uterine incision was inspected and found to be without any extensions and was repaired with 0 Vicryl in a running, locked fashion. A second imbricating layer was performed. She required 2 additional [id number] sutures on the hysterotomy. Upon inspection, the repaired hysterotomy was found to be hemostatic. During the closure of the uterus, patient had uterine atony despite oxytocin, and brisk bleeding was noted from the hysterotomy. She received 1 dose of 200 mcg of Methergine. Uterine atony resulted in a hemorrhage. The uterus was firm and returned to the abdomen. The gutters were cleared of all clots and debris. The fascia was reapproximated with 0 Vicryl in a running fashion. The skin was closed in a subcuticular fashion with 4-0 Monocryl. The patient tolerated the procedure well. Sponge, lap and needle counts were correct times three. The patient was taken to the recovery room in stable condition. I appreciate the assistance of ASHLY Ramirez during this procedure, and the assistance in retraction, visualization, dissection, and overall assistance during the case were instrumental to the patient's wellbeing.
[2023-04-18] MEDS ORDERED: ROPIVACAINE 0.5% PF 20 ML VIAL ONE (07:14)
[2023-04-18] MEDS ORDERED: SODIUM CHLORIDE 0.9% 10 ML VIAL IVP ONE (07:15)
[2023-04-18] MEDS ORDERED: OXYTOCIN 10 UNIT/ML VIAL ONE (07:27)
[2023-04-18] MEDS ORDERED: PHENYLEPHRINE 10 MG/ML VIAL ONE (07:29)
[2023-04-18] MEDS ORDERED: LIDOCAINE MPF 2%-EPI 1:200000 20 ML VIAL ONE (07:31)
[2023-04-18] MEDS ORDERED: LACTATED RINGERS 1,000 ML IV ONE (07:49)
[2023-04-18] MEDS ORDERED: LACTATED RINGERS 100 ML IV ONE (07:49)
[2023-04-18 08:54] LABS: BASOPHILS % (AUTO) 0.3 %; EOSINOPHILS % (AUTO) 0.1 %; HGB - HEMOGLOBIN 10.2 g/dL (12.0-16.0); LYMPHOCYTES % (AUTO) 8.1 %; MEAN CORPUSCULAR HGB CONC 32.9 g/dL (32.0-36.0); MEAN CORPUSCULAR VOLUME 100.3 fL (81.0-99.0); MEAN PLATELET VOLUME 9.9 fL (7.9-10.8); MONOCYTES # (AUTO) 0.5 10^3/uL (0.0-1.0); MONOCYTES % (AUTO) 3.9 %; NEUTROPHILS # (AUTO) 10.4 10^3/uL (1.5-6.6); PLT - PLATELET COUNT 161 10^3/uL (130-450); RED BLOOD COUNT 3.09 10^6/uL (4.20-5.40); RED CELL DISTRIBUTION WIDTH 14.6 % (12.0-15.0); WHITE BLOOD COUNT 11.9 x10^3/uL (4.8-10.8)
[2023-04-18] MEDS: miSOPROStoL 100 MCG TABLET BC SCH ×5 (10:48→10:53)
[2023-04-18] MEDS: SODIUM CHLORIDE FLUSH 0.9% 10 ML SYRINGE IVP SCH ×9 (10:48→18:47)
[2023-04-18] MEDS: LACTATED RINGERS 1,000 ML IV SCH ×2 (11:29→15:16)
[2023-04-18] MEDS ORDERED: OXYTOCIN/SODIUM CHLORIDE 500 ML IV PRN (11:38)
[2023-04-18] MEDS ORDERED: SODIUM CHLORIDE FLUSH 0.9% 10 ML SYRINGE IVP PRN (11:38)
[2023-04-18] MEDS ORDERED: ONDANSETRON ODT 4 MG TABLET TL PRN (11:38)
[2023-04-18] MEDS: oxyCODONE 5 MG TABLET PO PRN ×2 (12:47→17:49)
[2023-04-18] MEDS: ACETAMINOPHEN 500 MG TABLET PO SCH ×2 (12:47→20:54)
[2023-04-18] MEDS: SIMETHICONE CHEW 80 MG TABLET PO PRN (12:48)
[2023-04-18] MEDS: KETOROLAC 30 MG/ML VIAL IVP SCH ×2 (14:26→20:23)
[2023-04-18] MEDS: DOCUSATE SODIUM 100 MG CAPSULE PO SCH (21:32)
[2023-04-18] MEDS: ESCITALOPRAM 10 MG TABLET PO SCH (22:33)
[2023-04-19] MEDS: KETOROLAC 30 MG/ML VIAL IVP SCH (02:29)
[2023-04-19] MEDS: ACETAMINOPHEN 500 MG TABLET PO SCH ×3 (04:55→21:10)
[2023-04-19 06:11] LABS: BASOPHILS % (AUTO) 0.3 %; EOSINOPHILS # (AUTO) 0.1 10^3/uL (0.0-0.7); EOSINOPHILS % (AUTO) 0.9 %; HCT - HEMATOCRIT 25.1 % (37.0-47.0); LYMPHOCYTES # (AUTO) 1.1 10^3/uL (1.5-3.5); LYMPHOCYTES % (AUTO) 12.7 %; MEAN CORPUSCULAR HEMOGLOBIN 33.3 pg (27.0-31.0); MEAN CORPUSCULAR HGB CONC 31.9 g/dL (32.0-36.0); MEAN CORPUSCULAR VOLUME 104.6 fL (81.0-99.0); MEAN PLATELET VOLUME 9.9 fL (7.9-10.8); MONOCYTES # (AUTO) 0.5 10^3/uL (0.0-1.0); MONOCYTES % (AUTO) 5.8 %; NEUTROPHILS % (AUTO) 78.7 %; PLT - PLATELET COUNT 147 10^3/uL (130-450); RED CELL DISTRIBUTION WIDTH 15.1 % (12.0-15.0); WHITE BLOOD COUNT 8.9 x10^3/uL (4.8-10.8)
--- NOTE | 2023-04-19 07:59 | ANESTHESIA POST OP EVALUATION ---
Anesthesia Post Eval - Post Anesthesia Eval Vitals: Last Vital Signs Temp 37.3 C 04/19/23 02:00 Pulse 102 H 04/19/23 02:00 Resp 18 04/19/23 02:00 BP 102/56 L 04/19/23 02:00 Pulse Ox 100 04/18/23 12:00 O2 Flow Rate 0 04/18/23 00:04 CV Function Including HR & BP: Stable Pain Control: Satisfactory Nausea & Vomiting: Negative Mental Status: Baseline Respiratory Status: Airway Patent Hydration Status: Satisfactory Anesthesia Complications: None
--- NOTE | 2023-04-19 09:31 | PROVIDER PROGRESS NOTE ---
Subjective - Prog Note Date Prog Note Date: 04/19/23 Prog Note Time: 09:31 - Subjective Pt reports feeling: Improved Subjective: Subjective Patient reports she is doing well. Lochia appropriate. Denies heavy bleeding. Ambulating. Pelvic and abdominal pain well-controlled. Tolerating oral intake. Diet: Regular. Voiding without difficulty. Passing flatus. Denies BM. Patient is bonding with baby in room Bottle feeding at this time. Denies feeling lightheaded, dizzy or excessively fatigued. Objective General: Alert, oriented, no apparent distress. Cardiovascular: Regular rate. Regular rhythm. Lungs: No increased work of breathing. Abdomen: Uterus firm. Below umbilicus. No guarding or rebound. Extremities: No pain on palpation. No cords palpated. Distal pulses intact. Incision: Clean, dry, and intact. Bandage removed today Assessment and Plan day 1. -Routine care -Anticipate discharge tomorrow. -Lee out, encouraged ambulation ADHD -Continue Lexapro. A2 GDM -Plan for 2-hour GTT Acute blood loss anemia -Asymptomatic at this time. Hemoglobin from 12.0-8.0. His Objective - Vital Signs/Intake & Output Vital Signs: Vital Signs x48h Temp Pulse Resp BP 04/19/23 02:00 99.1 F 102 H 18 102/56 L Intake & Output: Intake & Output 04/16/23 04/17/23 04/18/23 04/19/23 23:59 23:59 23:59 23:59 Intake Total 7931.451 2053.984 2708.633 Output Total 5560 1100 Balance 8857.692 7901.984 -2851.367 -1100 - Lab Results Fish Bones: 04/19/23 06:06 04/17/23 22:50 Other Labs: Lab Results x24hrs 04/19/23 Range/Units 06:06 WBC 8.9 (4.8-10.8) x10^3/uL RBC 2.40 L (4.20-5.40) 10^6/uL Hgb 8.0 L (12.0-16.0) g/dL Hct 25.1 L (37.0-47.0) % MCV 104.6 H (81.0-99.0) fL MCH 33.3 H (27.0-31.0) pg MCHC 31.9 L (32.0-36.0) g/dL RDW 15.1 H (12.0-15.0) % Plt Count 147 (130-450) 10^3/uL MPV 9.9 (7.9-10.8) fL Neut # (Auto) 7.0 H (1.5-6.6) 10^3/uL Lymph # (Auto) 1.1 L (1.5-3.5) 10^3/uL [place] # (Auto) 0.5 (0.0-1.0) 10^3/uL Eos # (Auto) 0.1 (0.0-0.7) 10^3/uL Baso # (Auto) 0.0 (0.0-0.1) 10^3/uL Absolute Nucleated RBC 0.00 x10^3/uL Nucleated RBC % 0.0 /100WBC
[2023-04-19] MEDS: SIMETHICONE CHEW 80 MG TABLET PO PRN ×2 (09:34→12:46)
[2023-04-19] MEDS: DOCUSATE SODIUM 100 MG CAPSULE PO SCH ×2 (09:34→21:10)
[2023-04-19] MEDS: oxyCODONE 5 MG TABLET PO PRN ×4 (09:35→21:10)
[2023-04-19] MEDS: LACTATED RINGERS 1,000 ML IV SCH (11:14)
[2023-04-19] MEDS: SODIUM CHLORIDE FLUSH 0.9% 10 ML SYRINGE IVP SCH ×2 (11:15)
[2023-04-19] MEDS: IBUPROFEN 600 MG TABLET PO SCH ×2 (12:46→18:53)
[2023-04-19] MEDS: ESCITALOPRAM 10 MG TABLET PO SCH (21:10)
[2023-04-19] MEDS ORDERED: ESCITALOPRAM 10 MG TABLET PO SCH (21:38)
[2023-04-20] MEDS: oxyCODONE 5 MG TABLET PO PRN (00:58)
[2023-04-20] MEDS: IBUPROFEN 600 MG TABLET PO SCH ×2 (00:58→07:12)
[2023-04-20] MEDS: ACETAMINOPHEN 500 MG TABLET PO SCH (05:24)
[2023-04-20 07:33] LABS: BASOPHILS # (AUTO) 0.1 10^3/uL (0.0-0.1); BASOPHILS % (AUTO) 0.8 %; EOSINOPHILS # (AUTO) 0.4 10^3/uL (0.0-0.7); EOSINOPHILS % (AUTO) 4.6 %; HCT - HEMATOCRIT 24.9 % (37.0-47.0); LYMPHOCYTES # (AUTO) 1.5 10^3/uL (1.5-3.5); LYMPHOCYTES % (AUTO) 19.5 %; MEAN CORPUSCULAR HEMOGLOBIN 33.5 pg (27.0-31.0); MEAN CORPUSCULAR HGB CONC 32.1 g/dL (32.0-36.0); MEAN CORPUSCULAR VOLUME 104.2 fL (81.0-99.0); MEAN PLATELET VOLUME 9.8 fL (7.9-10.8); MONOCYTES # (AUTO) 0.4 10^3/uL (0.0-1.0); MONOCYTES % (AUTO) 5.1 %; NEUTROPHILS # (AUTO) 5.3 10^3/uL (1.5-6.6); NEUTROPHILS % (AUTO) 68.2 %; PLT - PLATELET COUNT 187 10^3/uL (130-450); RED BLOOD COUNT 2.39 10^6/uL (4.20-5.40); RED CELL DISTRIBUTION WIDTH 14.9 % (12.0-15.0); WHITE BLOOD COUNT 7.8 x10^3/uL (4.8-10.8)
[2023-04-20 10:27] VITALS: BP 105/62
--- NOTE | 2023-04-20 13:14 | Discharge Plan ---
Discharge Plan Problem Reviewed?: Yes Disposition: Home, Self Care Condition: Good Diet: Regular Activity Restrictions: Additional Comments (Avoid anything inside the vagina for 6 weeks. Do not lift more than 10 pounds for [address] while taking oxycodone.) Shower Restrictions: No Instruction Topics: C Section Dc Assessment: 1. Primary low transverse delivery on 04/18/23 2. Failure to progress 3. Anemia No Smoking: If you smoke, Please STOP! Call for help. Follow-up with: Wood Grant MD [Provider Admit Priv/Credential] -
--- NOTE | 2023-04-20 13:29 | DISCHARGE SUMMARY ---
Discharge Summary Code Status: Attempt Resuscitation Condition at Discharge: Good Discharge Disposition: 01 Home, Self Care - DIAGNOSES Admission Diagnoses: 1. 38w2d gestation 2. Advance maternal age 3. A2 Gestational Diabetes 4. H/o Asthma 5. Spontaneous rupture of membrane Discharge Diagnoses with Status of Each Condition: 1. Primary low transverse delivery on 04/18/23 2. Failure to progress 3. Anemia 4. H/o Asthma - HPI History of Present Illness: Patient is a 37 year old female, G1 now P1001 who was admitted for prelabor rupture of membranes at 38w2d gestation. She received misoprostol and then started on oxytocin. She had a slow induction but made a gradual change intermittently. She remained afebrile. Fetus remained category 1 throughout, with continued induction for nearly 48 hours. Her cervix remained 4 cm. A primary low transverse section was completed on 04/18/23 due to failure to dilate. She had an EBL of 1400 ml. Her hemoglobin stabilized at 8.0. Her postoperative course was uncomplicated. We reviewed post operative care instructions, anemia precautions and control options. She requested to return home on 04/20/23. Her incision appears healthy. She will continue with oral iron. She was able to ambulate, tolerate a regular diet, and positive flatus. - HOSPITAL COURSE Hospital Course: Patient is a 37 year old female, G1 now P1001 who was admitted for prelabor rupture of membranes at 38w2d gestation. She received misoprostol and then started on oxytocin. She had a slow induction but made a gradual change intermittently. She remained afebrile. Fetus remained category 1 throughout, with continued induction for nearly 48 hours. Her cervix remained 4 cm. A primary low transverse section was completed on 04/18/23 due to failure to dilate. She had an EBL of 1400 ml. Her hemoglobin stabilized at 8.0. Her postoperative course was uncomplicated. We reviewed post operative care instructions, anemia precautions and control options. She requested to return home on 04/20/23. Her incision appears healthy. She will continue with oral iron. She was able to ambulate, tolerate a regular diet, and positive flatus. - ALLERGIES Allergies/Adverse Reactions: Allergies Allergy/AdvReac Type Severity Reaction Status Date / Time hydrocodone bitartrate * Allergy Nausea Verified 04/18/23 15:20 [From Vicodin] - MEDICATIONS Home Medications: Ambulatory Orders Medication Instructions Recorded Confirmed Meclizine HCl [Antivert] 25 mg PO QID PRN #20 tablet 02/08/16 12/08/20 Albuterol [Proventil Hfa] 1 - 2 puffs PO PRN PRN 12/08/20 12/08/20 Dextroamphetamine/Amphetamine 10 mg PO DAILY 12/08/20 12/08/20 [Adderall 10 mg Tablet] Escitalopram [Lexapro] 10 mg PO DAILY 12/08/20 12/08/20 Ferrous Sulfate [Feosol] 325 mg PO DAILY #90 tablet 04/20/23 - PHYSICAL EXAM AT DISCHARGE General Appearance: positive: No acute distress Abdomen: positive: Non-tender, Other (Uterus fundus is firm below umbilicus.) Skin: positive: Color nml (Incision is clean without signs of infection. ) Extremities: positive: Non-tender, Pedal edema Neurologic/Psychiatric: positive: Oriented x3 - LABS Result Diagrams: 04/20/23 07:16 04/17/23 22:50 - QUALITY (Female Hip Fx Only) Was patient sent home on osteoporosis medication?: No - FOLLOW UP Follow Up: Dr. Wood Wyatt in 1-2 weeks - TIME SPENT Time Spent in Discharge (Minutes): 30
--- NOTE | 2023-04-20 16:10 | Labor Flowsheet ---
Labor Flowsheet Datetime Report Generated by CPN: 04/20/2023 16:10 Datetime: 04/20/2023 10:26 VITAL SIGNS NBP Sys/Tiffanie/Mean (mmHg): 105 : 62 : 72 Pulse: 82 LaborFlag: Labor Datetime: 04/18/2023 20:40 SpO2 (%): 98 Datetime: 04/18/2023 05:57 Quality: Mild Resting Tone (Palpate): Relaxed Contraction Comments: UC x1 in 13 min Patient Care Comments: 0558 to OR 1 via labor bed by Zari Montesinos CRNA, Krista Burkhart, ARNP an d FOB. This RN picked up baby supplies and followed. Pt's refrigerated colostrum broght to OR. Datetime: 04/18/2023 05:56 ASSESSMENT A Monitor Mode: External US FHR Baseline Rate : 145 Variability: Minimal - Undetectable to <=5 bpm Accelerations: 15X15 Decelerations: None Category: Category II Datetime: 04/18/2023 05:45 UTERINE ACTIVITY Monitor Mode: Internal Frequency (min): 7-10 Duration (sec): 70-90 Pattern: Normal: <= 5 Contractions in 10 Minutes Resting Tone IUP (mmHg): 10 Intensity IUP (mmHg): 15-30 Comments: min LTV x 3 min Datetime: 04/18/2023 05:42 PATIENT CARE IV/Blood Work: IV Started Datetime: 04/18/2023 05:32 Antiemetics/Antacids: Zofran (mg) @ 4 Datetime: 04/18/2023 05:25 Medication Comments: 0525 ephedrine 5 mg ivp given ALB Communication Comments: K Kerns, RN calling OR crew in Datetime: 04/18/2023 05:15 Vital Sign Comments: pt denies lightheadedness or dizziness. yes on nausea. fluid bolus started 9 00 ml/hr, VTBI 500 ml Datetime: 04/18/2023 05:12 VAGINAL EXAM Dilatation (cm): 4.0 Vaginal Exam Comments: same as last SVE per DR Rudy Datetime: 04/18/2023 05:10 COMMUNICATION Communication: Provider at Bedside Provider Notified (Name): Dr Grant Datetime: 04/18/2023 05:00 [place] Units (mmHg): 110 Datetime: 04/18/2023 04:55 MEDICATIONS Pitocin (milliunits): Discontinued Datetime: 04/18/2023 04:51 Patient Position/Activity: Semi-Fowlers Datetime: 04/18/2023 04:30 Pitocin Checklist: At Least 1 Acceleration of 15 bpm x 15 Seconds in 30 Minutes or Adequate Variabi lity; No More than 1 Late Deceleration Occurred in Past 30 Minutes; No More than 2 Variable Decelerat ions > 60 Seconds in Duration and decreasing >60 bpm in 30 minutes; No More than 5 Uterine Contractio ns in 10 Minutes for any 20 Minute Interval; Uterus Palpates Soft between Contractions; IUPC Resting Tone less than 25 mmHg Datetime: 04/18/2023 03:45 PAIN Pain Scale: 0 Anesthesia Level Check: T6- Xyphoid Anesthesia Comments: Right T6, left T10 Datetime: 04/18/2023 03:15 Pain Type: Pressure Pain Location: Other Pain Assessment Comments: pelvic pressure, PCEA used Datetime: 04/18/2023 02:45 Respirations: 16 Temperature (C): 37.0 Datetime: 04/18/2023 00:50 [place] UNITS (Computed) Contractions in Ten Minutes: 3 IUPC Average Intensity: 45 IUPC Average Resting Tone: 10 [place] Units (mmHg): 105 Datetime: 04/18/2023 00:26 Bedside Blood Glucose: 105 Datetime: 04/18/2023 00:17 Pain Presence: Intermittent Pain Relief Measures: Epidural Given Pain Coping: Talking Through Contractions; Breathing Through Contractions Datetime: 04/17/2023 23:49 Epidural Procedure Other: Pump Started Datetime: 04/17/2023 23:45 ANESTHESIA Epidural Procedure: Loading Dose Datetime: 04/17/2023 23:17 PROCEDURE TIME OUT Procedure Verify: Correct Patient Identity; Correct Side and Site are Marked; Accurate Procedure Co nsent Form; Agreement on Procedure to be Done; Correct Patient Position; Safety Precautions Based on Patient History or Medication Use Datetime: 04/17/2023 22:57 I/O Interventions: Up to BR Datetime: 04/17/2023 22:22 Effacement (%): 50 Station: -2 Exam by: Dr Rudy Cervix, Consistency: Moderate Cervix, Position: Midposition Datetime: 04/17/2023 21:33 MATERNAL ASSESSMENT Level of Consciousness: Drowsy Datetime: 04/17/2023 20:09 Comfort Measures: Breathing/Relaxation Datetime: 04/17/2023 20:06 Monitor Interventions for FHR: Ultrasound Adjusted Datetime: 04/17/2023 15:30 Monitor Interventions for UA: IUPC Inserted Datetime: 04/17/2023 11:18 Notification Reason: Status Update; Labor Status; Uterine Activity Datetime: 04/17/2023 11:15 FHR Baseline Changes: Return to Previous Baseline Datetime: 04/17/2023 08:11 Stage of : Labor Temperature Route: Oral Datetime: 04/17/2023 06:21 Vaginal Bleeding: None Datetime: 04/16/2023 23:24 Insulin: Reg Insulin Subcutaneous (Units) @ 2 Datetime: 04/16/2023 22:02 Amniotic Fluid Amount: Copious Datetime: 04/16/2023 21:50 Nausea/Vomiting: Denies Datetime: 04/16/2023 14:19 Membranes Ruptured Date/Time: 04/16/2023 06:45 Membranes Rupture Method: Spontaneous Amniotic Fluid Color: Clear Amniotic Fluid Odor: None Datetime: 04/16/2023 11:09 Cervical Ripening Agents: Cytotec @ 25
== END 2023-04-20 13:45 | disposition home or self-care (01) | DRG 787 ==
LOC: WFO 08:56 → FBP 08:58 → WFO 09:47 → FBP 09:48
PROVIDERS: ADMIT Obstetrics & Gynecology; ATTEND Obstetrics & Gynecology
PROC: 3E033VJ Introduction of Other Hormone into Peripheral Vein, Percutaneous Approach (ICD-10-PCS; 2023-04-16)
PROC: 3E0DXGC Introduction of Other Therapeutic Substance into Mouth and Pharynx, External Approach (ICD-10-PCS; 2023-04-16)
PROC: 10H07YZ Insertion of Other Device into Products of Conception, Via Natural or Artificial Opening (ICD-10-PCS; 2023-04-17)
PROC: 10D00Z1 Extraction of Products of Conception, Low, Open Approach (ICD-10-PCS; principal; 2023-04-18 06:00)
DX: O42.92 Full-term premature rupture of membranes, unspecified as to length of time between rupture and onset of labor (principal); D62 Acute posthemorrhagic anemia; O62.0 Primary inadequate contractions; O24.424 Gestational diabetes mellitus in childbirth, insulin controlled; Z3A.38 38 weeks gestation of pregnancy; Z37.0 Single live birth; O99.344 Other mental disorders complicating childbirth; F90.9 Attention-deficit hyperactivity disorder, unspecified type; O99.52 Diseases of the respiratory system complicating childbirth; J45.40 Moderate persistent asthma, uncomplicated; O26.03 Excessive weight gain in pregnancy, third trimester; O75.89 Other specified complications of labor and delivery; R00.0 Tachycardia, unspecified; O26.53 Maternal hypotension syndrome, third trimester; O90.81 Anemia of the puerperium; Z79.899 Other long term (current) drug therapy
CPT/HCPCS: 36415; 59025; 80048; 80053; 84112; 85025; 86850; 86900; 86901; 99213; A9270; J1815; J2210; J2795; J7120; 99215

== ENCOUNTER 2023-11-29 08:00 | Outpatient (CLI) | payer OTHER | END 2023-11-29 23:59 | disposition home or self-care (01) | LOC: LAB.S 08:00 | PROVIDERS: ATTEND Registered Nurse | DX: L02.412 Cutaneous abscess of left axilla (principal) | CPT/HCPCS: 87070; 87205 ==

== ENCOUNTER 2024-04-14 09:56 | Outpatient (CLI) | payer OTHER ==
--- NOTE | 2024-04-14 16:41 | XRAY Report ---
PROCEDURE: Chest 2V INDICATIONS: WALKING PNEUMONIA/ASTHMA TECHNIQUE: 2 views of the chest were acquired. COMPARISON: None. FINDINGS: Surgical changes and devices: None. Lungs and pleura: No pleural effusions or pneumothorax. Lungs are clear. Mediastinum: Mediastinal contours appear normal. Heart size is normal. Bones and chest wall: No suspicious bony lesions. Overlying soft tissues appear unremarkable. IMPRESSION: No acute cardiopulmonary process. Reviewed by: Saray Rodriguez MD on 04/14/2024 4:40 PM PDT Approved by: Saray Rodriguez MD on 04/14/2024 4:40 PM PDT Station ID: [id number]
== END 2024-04-14 23:50 | disposition home or self-care (01) ==
LOC: DI.S 09:56
PROVIDERS: ATTEND Registered Nurse
DX: J18.9 Pneumonia, unspecified organism (principal); J45.901 Unspecified asthma with (acute) exacerbation